=== PATIENT | female | born 1985 | race American Indian/Alaskan Native ===

== ENCOUNTER 2016-09-10 01:12 | Emergency (ER) | payer MEDICAID, OTHER ==
[2016-09-10 01:28] VITALS: BP 110/82
[2016-09-10] MEDS ORDERED: Amoxicillin 500 MG Cap PO ONE (01:43)
[2016-09-10] MEDS ORDERED: Benzocaine 20% Oral Spray 59.2 ML Canister MUCMEM ONE (01:43)
--- NOTE | 2016-09-10 01:43 | EDM.PDOC ---
ED HPI ENT - General Chief Complaint: ENT Problem Stated Complaint: TOOTHACHE, NO PHONE Time Seen by Provider: 09/10/16 01:36 Source of Information: Reports: Patient History Limitations: Reports: No limitations - History of Present Illness INITIAL COMMENTS - FREE TEXT/NARRATIVE: 31 yo [place] Female c/o right maxillary toothache X 6 hours. Pt. w/ known advanced caries Symptom Onset Date: 09/09/16 Symptom Onset Time: 12:00 Timing/Duration: Reports: Hour(s): Severity: moderate Location: Reports: mouth (maxillary tooth) Quality: Reports: Ache Worsens with: Reports: Cold therapy Associated Symptoms: Reports: no other symptoms - Related Data Allergies/ADRs: Allergies Allergy/AdvReac Type Severity Reaction Status Date / Time azithromycin [From Zithromax] Allergy Diarrhea Verified 09/10/16 01:30 Sulfa (Sulfonamide Allergy Other Verified 09/10/16 01:30 Antibiotics) trimethoprim Allergy Other Verified 09/10/16 01:30 Home Meds: Home Meds Ferrous Sulfate [Iron] 325 mg PO BIDM 02/25/14 [History] Vits #90/Iron Fum/FA [ Formula] 1 tab PO DAILY 02/25/14 [ History] Acetaminophen [Tylenol] 650 mg PO Q4H PRN #30 tablet 05/31/16 [Rx] Docusate Sodium [Colace] 100 mg PO BID PRN #60 cap 05/31/16 [Rx] Ferrous Sulfate 325 mg PO BID #60 tablet 05/31/16 [Rx] Ibuprofen [IJD: Ibuprofen] 600 mg PO Q6H PRN #30 tablet 05/31/16 [Rx] Past Medical History - Past Health History Medical/Surgical History: Denies Medical/Surgical History Genitourinary History: Reports: UTI, recurrent 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: , 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 Musculoskeletal History: Reports: Back pain, chronic, Other (see below) Other Musculoskeletal History: left breast cyst removed Psychiatric History: Reports: Addiction Hematologic History: Reports: Anemia - Past Surgical History Female Surgical History: Reports: Breast biopsy Social & Family History - Family History Family Medical History: Unobtainable - Tobacco Use Smoking Status *Q: Current Every Day Smoker Years of Tobacco use: 10 Packs/Tins Daily: 5 - Caffeine Use Caffeine Use: Reports: Coffee, Soda, Tea - Alcohol Use Days Per Week of Alcohol Use: 0 - Recreational Drug Use Recreational Drug Use: No Recreational Drug Use Frequency: Patient Refuses To Answer ED ROS ENT - Review of Systems Review Of Systems: See Below Constitutional: Reports: no symptoms HEENT: Reports: Dental pain Respiratory: Reports: No Symptoms Cardiovascular: Reports: No symptoms Endocrine: Reports: no symptoms GI/Abdominal: Reports: No symptoms : Reports: no symptoms Musculoskeletal: Reports: no symptoms Skin: Reports: no symptoms Neurological: Reports: No Symptoms Psychiatric: Reports: No symptoms Hematologic/Lymphatic: Reports: no symptoms Immunologic: Reports: no symptoms ED EXAM, ENT - Physical Exam Exam: See Below Exam Limited By: No limitations General Appearance: alert, WD/WN, no apparent distress Eye Exam: bilateral eye: PERRL Ears: normal external exam Nose: normal inspection Mouth/Throat: Normal inspection, Dental pain (right posterior maxillary tooth w / fracture and advanced ovidio) Head: atraumatic Neck: normal inspection Respiratory/Chest: no respiratory distress Cardiovascular: normal peripheral pulses GI/Abdominal: normal bowel sounds Back: normal inspection Extremities: normal inspection Neurological: alert, oriented, CN II-XII intact Psychiatric: normal affect Skin: Warm, Dry, Intact, No rash Lymphatic: no adenopathy Course - Vital Signs Last Recorded V/S: Last Vital Signs Temp 36.6 C 09/10/16 01:21 Pulse 74 09/10/16 01:21 Resp 17 09/10/16 01:21 BP 110/82 09/10/16 01:21 Pulse Ox 100 09/10/16 01:21 - Orders/Labs/Meds Orders: Active Orders 24 hr Category Date Time Status Lidocaine 2% [Xylocaine 2% Viscous] Med 09/10/16 01:46 Once 20 ml PO ONETIME ONE Meds: Medications Discontinued Medications Generic Name Dose Route Start Last Admin Trade Name Freq PRN Reason Stop Dose Admin Amoxicillin 500 mg 09/10/16 01:43 Amoxil PO 09/10/16 01:44 ONETIME ONE Benzocaine 5 ml 09/10/16 01:43 Hurricaine 20% Bryce MUCMEM 09/10/16 01:44 ONETIME ONE Departure - Departure Time of Disposition: 01:52 Disposition: Home, Self-Care 01 Condition: good Clinical Impression: Dental caries Fracture of tooth Qualifiers: Encounter type: initial encounter Fracture type: open Qualified Code(s): S02.5XXB - Fracture of tooth (traumatic), initial encounter for open fracture Forms: ED Department Discharge Additional Instructions: Rest Take Penicillin 500mg QID # 40 as prescribed and complete Use Toothballs as directed and given to you. F/U w/ Dentist - My Orders Last 24 Hours: My Active Orders 09/10/16 01:46 Lidocaine 2% [Xylocaine 2% Viscous] 20 ml PO ONETIME ONE - Assessment/Plan Last 24 Hours: My Active Orders 09/10/16 01:46 Lidocaine 2% [Xylocaine 2% Viscous] 20 ml PO ONETIME ONE
[2016-09-10] MEDS ORDERED: Lidocaine 2% Viscous Solution 100 ML Bottle PO ONE (01:46)
[2016-09-10] MEDS ORDERED: Lidocaine 2% Viscous Solution 15 ML Cup ONE (01:49)
[2016-09-10] MEDS ORDERED: Lidocaine 2% Viscous Solution 15 ML Cup PO ONE (01:52)
== END 2016-09-10 02:03 | disposition home or self-care (01) ==
LOC: DL.ED 01:12
DX: S02.5XXB Fracture of tooth (traumatic), initial encounter for open fracture (principal); K02.9 Dental caries, unspecified; D64.9 Anemia, unspecified; Z87.440 Personal history of urinary (tract) infections; F17.210 Nicotine dependence, cigarettes, uncomplicated; Z79.899 Other long term (current) drug therapy; Z88.1 Allergy status to other antibiotic agents; Z88.2 Allergy status to sulfonamides; X58.XXXA Exposure to other specified factors, initial encounter
CPT/HCPCS: 99282; A9270

== ENCOUNTER 2017-06-16 07:29 | Inpatient (IN) | payer MEDICAID ==
[2017-06-16] MEDS ORDERED: Lactated Ringers 1,000 ML IV SCH (07:30)
[2017-06-16] MEDS ORDERED: Oxytocin/Normal Saline 30 UNIT/500 ML BAG IV SCH (07:45)
[2017-06-16] MEDS ORDERED: Sodium Chloride 0.9% 10 ML Syringe FLUSH PRN (08:12)
[2017-06-16] MEDS ORDERED: Oxytocin 10 Units/1 ML SDV IM PRN (08:12)
[2017-06-16] MEDS ORDERED: Benzocaine/Menthol 20%-0.5% Spray 56 GM Canister TOP PRN (08:12)
[2017-06-16] MEDS ORDERED: Simethicone 80 MG Tab.Chew PO PRN (08:12)
[2017-06-16] MEDS ORDERED: Carboprost Tromethamine 250 MCG/1 ML Amp IM PRN (08:12)
[2017-06-16] MEDS ORDERED: Misoprostol 400 MCG (4 X 100 MCG TAB) RECTAL PRN (08:12)
[2017-06-16] MEDS ORDERED: Methylergonovine 0.2 MG Tab PO PRN (08:12)
[2017-06-16] MEDS: Prenatal Multivitamin with Calcium/Folic Acid/Iron Tab PO SCH (09:10)
[2017-06-16] MEDS: Ibuprofen 800 MG Tab PO PRN ×2 (09:10→19:58)
[2017-06-16] MEDS: Acetaminophen 325 MG Tab PO PRN (13:25)
[2017-06-16] MEDS: Docusate Sodium 100 MG Cap PO PRN (19:58)
[2017-06-17] MEDS: Acetaminophen 325 MG Tab PO PRN ×2 (02:12→10:26)
[2017-06-17] MEDS: Ibuprofen 800 MG Tab PO PRN ×2 (06:30→18:53)
[2017-06-17] MEDS: Prenatal Multivitamin with Calcium/Folic Acid/Iron Tab PO SCH (10:25)
[2017-06-17] MEDS: Docusate Sodium 100 MG Cap PO PRN (10:26)
--- NOTE | 2017-06-17 11:54 | PCM.LDHP ---
L&D History of Present Illness - General Date of Service: 06/16/17 Admit Problem/Dx: Patient Status Order with Admit Dx/Problem 06/16/17 08:13 Patient Status [ADT] Routine Admission Diagnosis/Problem Admission Diagnosis/Problem Source of Information: Patient History Limitations: Reports: No Limitations - History of Present Illness Introduction:: 32-year-old patient at unknown gestational age presented in active labor with precipitous delivery approximately 10 minutes after arriving to the floor. Patient is a -0-1-7 who believes her LMP may have been in October 2016. She has had no care with this . She states she started mynor around 0100 this morning. She was unable to give any more details about her contraction frequency. Her water broke on the way to the hospital. Her significant other states the fluid appeared clear. Patient has a history of drug use but denies any current use with this . OBSTETRICAL HISTORY: 1. On 08/25/2004, 40 week gestation, vaginal delivery 7 pound male 2. On 06/28/2007, 39 week gestation, vaginal delivery, 7 pound 6 ounce male 3. On 12/21/2010, 40 week gestation, vaginal delivery, 7 pound 12 ounce female 4. On 11/27/2011, 39 week 2 day gestation, vaginal delivery, 7 pound 10.1 ounce male 5. On 02/24/2014, 39 week 1 day gestation, vaginal delivery, 7 pound male 6. On 05/25/2015, 37 week gestation (estimated), vaginal delivery, 6 pound 5.8 ounce male 7. On 05/30/16, 39 week gestation, vaginal delivery, 7 pound 11 ounce male Pain Score: 7 - Related Data Allergies/Adverse Reactions: Allergies Allergy/AdvReac Type Severity Reaction Status Date / Time azithromycin [From Zithromax] Allergy Diarrhea Verified 09/10/16 01:30 Sulfa (Sulfonamide Allergy Other Verified 09/10/16 01:30 Antibiotics) trimethoprim Allergy Other Verified 09/10/16 01:30 Home Medications: Home Meds Vit 90/Iron Fum/Folic [ Formula] 1 tab PO DAILY 02/25/14 [ History] Ferrous Sulfate 325 mg PO BID #60 tablet 05/31/16 [Rx] Ibuprofen [IJD: Ibuprofen] 600 mg PO Q6H PRN #30 tablet 05/31/16 [Rx] Acetaminophen [Tylenol] 650 mg PO Q6H PRN tablet 06/17/17 [Rx] Docusate Sodium [Colace] 100 mg PO BID PRN cap 06/17/17 [Rx] Ibuprofen [IJD: Ibuprofen] 800 mg PO Q8H PRN tablet 06/17/17 [Rx] Past Medical History - Past Health History Medical/Surgical History: Denies Medical/Surgical History Genitourinary History: Reports: UTI, Recurrent 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: , 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 Musculoskeletal History: Reports: Back Pain, Chronic, Other (See Below) Other Musculoskeletal History: left breast cyst removed Psychiatric History: Reports: Addiction (History oxycodone, tramadol and THC), Anxiety, Depression Hematologic History: Reports: Anemia - Infectious Disease History Infectious Disease History: Reports: Other (See Below) (Chickenpox) - Past Surgical History Female Surgical History: Reports: Breast Biopsy Social & Family History - Family History Cardiac: Reports: CAD (Maternal uncle) Endocrine/Metabolic: Reports: Diabetes, type II (Maternal grandmother) Other Family History: Negative for defects, multiples, anesthesia issues and bleeding/ clotting disorders. - Tobacco Use Smoking Status *Q: Current Every Day Smoker Years of Tobacco use: 16 Packs/Tins Daily: 0.2 - Caffeine Use Caffeine Use: Reports: Soda - Alcohol Use Days Per Week of Alcohol Use: 0 - Recreational Drug Use Recreational Drug Use: Yes Drug Use in Last 12 Months: No Recreational Drug Type: Reports: Other (see below) Other Recreational Drug Type: Pt denies. Drug urine screen positive for Meth and amphetamines Recreational Drug Use Frequency: Patient Refuses To Answer - Living Situation & Occupation Social History Comment: Lives with significant other in [place]. Would not comment on how many children are currently living with them. H&P Review of Systems - Review of Systems: Review Of Systems: See Below General: Reports: No Symptoms HEENT: Reports: No Symptoms Pulmonary: Reports: No Symptoms Cardiovascular: Reports: No Symptoms Gastrointestinal: Reports: Abdominal Pain (cramping) Genitourinary: Reports: No Symptoms Musculoskeletal: Reports: Back Pain Skin: Reports: No Symptoms Psychiatric: Reports: No Symptoms Neurological: Reports: No Symptoms Hematologic/Lymphatic: Reports: No Symptoms L&D Exam - Exam Exam: See Below - Vital Signs Vital Signs: Last Vital Signs Temp 36.5 C 06/16/17 21:49 Pulse 74 06/16/17 21:49 Resp 16 06/16/17 21:49 BP 112/67 06/16/17 21:49 Pulse Ox 98 06/16/17 21:49 Weight: 58.967 kg - Exam General: Alert, Oriented HEENT: Mucosa Moist & [place] Lungs: Clear to Auscultation, Normal Respiratory Effort Cardiovascular: Regular Rate, Regular Rhythm. No: Systolic Murmur, Diastolic Murmur Genitourinary: Normal external exam Back Exam: Normal Inspection Extremities: No Pedal Edema Skin: Warm, Dry, Intact - Patient Data Lab Results Last 24 hrs: Laboratory Results - last 24 hr 06/16/17 Range/Units 07:35 Rubella Immune Status Immune Rubella IgG Antibody Positive Result Diagrams: 06/16/17 07:35 - Problem List (1) Grand multipara SNOMED Code(s): 29672454 ICD Code: Z64.1 - PROBLEMS RELATED TO MULTIPARITY Status: Acute Current Visit: Yes (2) Insufficient care SNOMED Code(s): 2392342571452 ICD Code: O09.30 - SUPRVSN OF PREG W INSUFFICIENT ANTENAT CARE, UNSP TRIMESTER Status: Acute Current Visit: No (3) Normal vaginal delivery SNOMED Code(s): 44890992 ICD Code: O80 - ENCOUNTER FOR FULL-TERM UNCOMPLICATED DELIVERY Status: Acute Current Visit: No Problem List Initiated/Reviewed/Updated: Yes Orders Last 24hrs: Active Orders 24 hr Category Date Time Status Ready for Discharge [RC] PER UNIT ROUTINE Care 06/17/17 11:54 Ordered Medication Orders Acetaminophen (Tylenol) 650 mg PO Q6H PRN PRN Reason: mild pain or fever Last Admin: 06/17/17 10:26 Dose: 650 mg Admin: 06/17/17 02:12 Dose: 650 mg Admin: 06/16/17 13:25 Dose: 650 mg Benzocaine/Menthol (Dermoplast Pain Relief [place]) 0 gm TOP Q4H PRN PRN Reason: Perineal comfort measures Last Admin: 06/16/17 10:32 Dose: 1 spray Carboprost Tromethamine (Hemabate Ds) 250 mcg IM ASDIRECTED PRN PRN Reason: Excessive vaginal bleeding Docusate Sodium (Colace) 100 mg PO BID PRN PRN Reason: Constipation Last Admin: 06/17/17 10:26 Dose: 100 mg Admin: 06/16/17 19:58 Dose: 100 mg Oxytocin/Sodium Chloride (Pitocin In Ns 30 Unit/500 Ml) 30 unit in 500 mls @ 2 mls/hr IV TITRATE NAYLA; 2 MUNITS/MIN PRN Reason: Protocol Last Titration: 06/16/17 11:00 Dose: 0 mls/hr Titration: 06/16/17 09:56 Dose: 50 munits/min, 50 mls/hr Titration: 06/16/17 08:46 Dose: 125 mls/hr Titration: 06/16/17 08:01 Dose: 250 munits/min, 250 mls/hr Admin: 06/16/17 07:46 Dose: 500 munits/min, 500 mls/hr Lactated Ringer's (Ringers, Lactated) 1,000 mls @ 125 mls/hr IV ASDIRECTED NAYLA Last Infusion: 06/16/17 11:00 Dose: 0 mls/hr Admin: 06/16/17 07:40 Dose: 125 mls/hr Ibuprofen (Motrin) 800 mg PO Q8H PRN PRN Reason: Mild Pain or Fever Last Admin: 06/17/17 06:30 Dose: 800 mg Admin: 06/16/17 19:58 Dose: 800 mg Admin: 06/16/17 09:10 Dose: 800 mg Methylergonovine Maleate (Methergine) 0.2 mg PO ONETIME PRN PRN Reason: excessive vaginal bleeding Misoprostol (Cytotec) 800 mcg RECTAL ONETIME PRN PRN Reason: Hemorrhage Oxytocin (Pitocin) 10 unit IM ONETIME PRN PRN Reason: Bleeding Last Admin: 06/16/17 07:42 Dose: 10 unit Prenat Multivit/Te[employer] Equipment Maintainer/Iron/Folic Ac ( Plus Iron) 1 each PO DAILY NAYLA Last Admin: 06/17/17 10:25 Dose: 1 each Admin: 06/16/17 09:10 Dose: 1 each Simethicone (Simethicone) 80 mg PO Q4H PRN PRN Reason: Gas Sodium Chloride (Saline Flush) 10 ml FLUSH ASDIRECTED PRN PRN Reason: Keep Vein Open Assessment/Plan Comment:: 32-year-old status post precipitous at unknown gestational age (baby appears term) 1. Initiate routine cares 2. Obtain IOB labs and UDS with tramadol 3. Anticipate discharge 06/18/17 Anabelle Rubalcava MD
--- NOTE | 2017-06-17 11:55 | PCM.DCSUM1 ---
Discharge Summary - Hospital Course Free Text/Narrative:: 32-year-old status post precipitous at unknown gestation age --No care - Discharge Data Discharge Date: 06/17/17 Discharge Disposition: Home, Self-Care 01 Condition: Good - Patient Summary/Data Operative Procedure(s) Performed: None Complications: None Consults: Consultations 06/16/17 08:12 Consult to Ordnance Keeper [CONS] Routine Labs Pending at D/C: Urine tramadol, routine IOB labs pending Recommended Follow-up Testing/Procedures: None Planned Operative Procedure(s) after DC: None Hospital Course: Patient is eating and drinking well. No fever or chills. No dizziness with ambulation. Urinating and passing gas. UDS was positive for methamphetamines. Baby has to stay until 06/20/17 per social work. Patient would like to be discharged today. - Patient Instructions Diet: Usual Diet as Tolerated Activity: As Tolerated Driving: May Drive Today Showering/Bathing: May Shower Notify Provider of: Fever, Increased Pain - Discharge Plan Home Medications: Home Meds Vit 90/Iron Fum/Folic [ Formula] 1 tab PO DAILY 02/25/14 [ History] Ferrous Sulfate 325 mg PO BID #60 tablet 05/31/16 [Rx] Ibuprofen [IJD: Ibuprofen] 600 mg PO Q6H PRN #30 tablet 05/31/16 [Rx] Acetaminophen [Tylenol] 650 mg PO Q6H PRN tablet 06/17/17 [Rx] Docusate Sodium [Colace] 100 mg PO BID PRN cap 06/17/17 [Rx] Ibuprofen [IJD: Ibuprofen] 800 mg PO Q8H PRN tablet 06/17/17 [Rx] Patient Handouts: Stimulant Use Disorder-Amphetamines, Home Care Instructions for Mom, Care After Vaginal Delivery, Stimulant Use Disorder- Methamphetamines, Infants of Substance-Abusing Mothers Referrals: Anabelle Rubalcava MD [Physician] - - Discharge Summary/Plan Comment DC Time >30 min.: No Discharge Summary/Plan Comment: Discharge today with follow-up in 6-8 weeks for routine care. Reasons to return for evaluation or present to the ED were reviewed, and all questions were answered. - General Info Subjective Update: Patient is eating and drinking well. No fever or chills. No dizziness with ambulation. Urinating and passing gas. UDS was positive for methamphetamines. Baby has to stay until 06/20/17 per social work. Patient would like to be discharged today. Functional Status: Reports: Pain Controlled, Tolerating Diet, Ambulating, Urinating - Review of Systems General: Reports: No Symptoms HEENT: Reports: No Symptoms Pulmonary: Reports: No Symptoms Cardiovascular: Reports: No Symptoms Gastrointestinal: Reports: No Symptoms Genitourinary: Reports: No Symptoms Musculoskeletal: Reports: Back Pain (chronic) - Patient Data Vitals - Most Recent: Last Vital Signs Temp 36.5 C 06/16/17 21:49 Pulse 74 06/16/17 21:49 Resp 16 06/16/17 21:49 BP 112/67 06/16/17 21:49 Pulse Ox 98 06/16/17 21:49 Weight - Most Recent: 58.967 kg Lab Results - Last 24 hrs: Laboratory Results - last 24 hr 06/16/17 Range/Units 07:35 Rubella Immune Status Immune Rubella IgG Antibody Positive Med Orders - Current: Current Medications Acetaminophen (Tylenol) 650 mg PO Q6H PRN PRN Reason: mild pain or fever Last Admin: 06/17/17 10:26 Dose: 650 mg Benzocaine/Menthol (Dermoplast Pain Relief [place]) 0 gm TOP Q4H PRN PRN Reason: Perineal comfort measures Last Admin: 06/16/17 10:32 Dose: 1 spray Carboprost Tromethamine (Hemabate Ds) 250 mcg IM ASDIRECTED PRN PRN Reason: Excessive vaginal bleeding Docusate Sodium (Colace) 100 mg PO BID PRN PRN Reason: Constipation Last Admin: 06/17/17 10:26 Dose: 100 mg Oxytocin/Sodium Chloride (Pitocin In Ns 30 Unit/500 Ml) 30 unit in 500 mls @ 2 mls/hr IV TITRATE NAYLA; 2 MUNITS/MIN PRN Reason: Protocol Last Titration: 06/16/17 11:00 Dose: Infused Lactated Ringer's (Ringers, Lactated) 1,000 mls @ 125 mls/hr IV ASDIRECTED NAYLA Last Infusion: 06/16/17 11:00 Dose: 0 mls/hr Ibuprofen (Motrin) 800 mg PO Q8H PRN PRN Reason: Mild Pain or Fever Last Admin: 06/17/17 06:30 Dose: 800 mg Methylergonovine Maleate (Methergine) 0.2 mg PO ONETIME PRN PRN Reason: excessive vaginal bleeding Misoprostol (Cytotec) 800 mcg RECTAL ONETIME PRN PRN Reason: Hemorrhage Oxytocin (Pitocin) 10 unit IM ONETIME PRN PRN Reason: Bleeding Last Admin: 06/16/17 07:42 Dose: 10 unit Prenat Multivit/[place]/Iron/Folic Ac ( Plus Iron) 1 each PO DAILY NAYLA Last Admin: 06/17/17 10:25 Dose: 1 each Simethicone (Simethicone) 80 mg PO Q4H PRN PRN Reason: Gas Sodium Chloride (Saline Flush) 10 ml FLUSH ASDIRECTED PRN PRN Reason: Keep Vein Open - Exam General: Reports: Alert, Moderate Distress HEENT: Reports: Mucous Membr. Moist/[place] Lungs: Reports: Clear to Auscultation, Normal Respiratory Effort Cardiovascular: Reports: Regular Rate, Regular Rhythm, No Murmurs Extremities: No Pedal Edema Skin: Reports: Warm, Dry, Intact *Q Meaningful Use (DIS) - VTE *Q VTE Criteria *Q: - Stroke *Q Stroke Criteria *Q: - AMI *Q AMI Criteria *Q:
--- NOTE | 2017-06-17 12:50 | PCM.DEL ---
<Chasidy Barnett - Last Filed: 06/17/17 13:06> L & D Note - General Info Date of Service: 06/15/17 Mother's Due Date: 06/15/17 (Unknown, no care, LMN unknown ) - Delivery Note Labor: Spontaneous Delivery Outcome: Livebirth Infant Delivery Method: Spontaneous Vaginal Delivery-Single Infant Delivery Mode: Spontaneous Presentation: Unable to Assess (Precipitous delivery, Infant delivered by nurse.) Anesthesia Type: None Amniotic Fluid Description: Clear (Per RN, patient presented leaking clear amniotic fluid) Episiotomy Type: None Laceration: 1st Degree, Periurethral (Right and Left Periurethral tear) Placenta: Intact, Spontaneous Cord: 3 Vessels Resuscitation Needed: No Score 1 min: 9 Score 5 min: 9 Post Delivery Events: Other (see below) (Fundal Massage, 10 units pitocin IM ) Second Stage Interventions: Reports: Pushing Effectively, Other (see below) Delivery Comments (Free Text/Narrative):: Per RN, Patient presented to [facility] OB department in clear distress. Patient known by nurses to be grand multigravida, exact status unknown at admission. Gestational age unknown at admission, possible last menstrual period in September-October 2016. Patient received "a shot in October for control". She has had not care with this . Patient woke up with contractions at 0100 on 06/16/17. The contractions worsened around 0500. She was admitted to the OB department with contractions and leaking clear fluid. Tocometer tracing was started at 0723. Patient pushed and a mucus plug was delivered. On the next push, the patient delivered a live male infant. Time of delivery 0736. The baby was delivered by Sudeep Szymanski RN. Chasidy Barnett [facility] and Kathya Mcclain MSIII delivered the placenta and provided fundal massage. Baby was placed on mother's chest and cord was immediately clamped. The father of the baby cut the umbilical cord. Cord blood and meconium were collected. APGARs were 9/9 at one and five minutes. 10 units pitosin IM was given during fundal massage to improve uterine tone. Placenta was delivered with trailing membranes. Post-delivery Perineal and vaginal exam showed a right and left 1st degree periurethral tears that did not require suture repair. - Patient Data Vitals - Most Recent: Last Vital Signs Temp 97.7 F 06/16/17 21:49 Pulse 74 06/16/17 21:49 Resp 16 06/16/17 21:49 BP 112/67 06/16/17 21:49 Pulse Ox 98 06/16/17 21:49 Weight - Most Recent: 58.967 kg Lab Results Last 24 Hours: Laboratory Results - last 24 hr 06/16/17 Range/Units 07:35 Rubella Immune Status Immune Rubella IgG Antibody Positive Med Orders - Current: Current Medications Acetaminophen (Tylenol) 650 mg PO Q6H PRN PRN Reason: mild pain or fever Last Admin: 06/17/17 10:26 Dose: 650 mg Benzocaine/Menthol (Dermoplast Pain Relief [place]) 0 gm TOP Q4H PRN PRN Reason: Perineal comfort measures Last Admin: 06/16/17 10:32 Dose: 1 spray Carboprost Tromethamine (Hemabate Ds) 250 mcg IM ASDIRECTED PRN PRN Reason: Excessive vaginal bleeding Docusate Sodium (Colace) 100 mg PO BID PRN PRN Reason: Constipation Last Admin: 06/17/17 10:26 Dose: 100 mg Oxytocin/Sodium Chloride (Pitocin In Ns 30 Unit/500 Ml) 30 unit in 500 mls @ 2 mls/hr IV TITRATE NAYLA; 2 MUNITS/MIN PRN Reason: Protocol Last Titration: 06/16/17 11:00 Dose: Infused Lactated Ringer's (Ringers, Lactated) 1,000 mls @ 125 mls/hr IV ASDIRECTED NAYLA Last Infusion: 06/16/17 11:00 Dose: 0 mls/hr Ibuprofen (Motrin) 800 mg PO Q8H PRN PRN Reason: Mild Pain or Fever Last Admin: 06/17/17 06:30 Dose: 800 mg Methylergonovine Maleate (Methergine) 0.2 mg PO ONETIME PRN PRN Reason: excessive vaginal bleeding Misoprostol (Cytotec) 800 mcg RECTAL ONETIME PRN PRN Reason: Hemorrhage Oxytocin (Pitocin) 10 unit IM ONETIME PRN PRN Reason: Bleeding Last Admin: 06/16/17 07:42 Dose: 10 unit Prenat Multivit/Aircraft Engineer/Iron/Folic Ac ( Plus Iron) 1 each PO DAILY NAYLA Last Admin: 06/17/17 10:25 Dose: 1 each Simethicone (Simethicone) 80 mg PO Q4H PRN PRN Reason: Gas Sodium Chloride (Saline Flush) 10 ml FLUSH ASDIRECTED PRN PRN Reason: Keep Vein Open - Problem List & Annotations (1) Normal vaginal delivery SNOMED Code(s): 36488203 Code(s): O80 - ENCOUNTER FOR FULL-TERM UNCOMPLICATED DELIVERY Status: Acute Current Visit: No - Problem List Review Problem List Initiated/Reviewed/Updated: Yes <Anabelle Rubalcava - Last Filed: 06/18/17 10:01> L & D Note - Delivery Note Presentation: Vertex Post Delivery Events: Other (see below) Second Stage Interventions: Reports: Pushing Effectively Delivery Comments (Free Text/Narrative):: I arrived to L&D after delivery of the infant. Upon arrival to the room, baby was in the warmer and patient was lying in the bed. Placenta was delivered. Assessment of patient revealed a firm uterus, intact perineum and appropriate amount of bleeding. Baby was also evaluated. Patient has had no care with this . She believes her LMP to be in October 2016. She does have a history of substance abuse but denies drug use with this . A full H&P will be completed as well. Anabelle Rubalcava MD - Patient Data Vitals - Most Recent: Last Vital Signs Temp 37.2 C 06/17/17 08:00 Pulse 68 06/17/17 08:00 Resp 16 06/17/17 08:00 BP 122/73 06/17/17 08:00 Pulse Ox 98 06/17/17 08:00 Med Orders - Current: Current Medications Acetaminophen (Tylenol) 650 mg PO Q6H PRN PRN Reason: mild pain or fever Last Admin: 06/17/17 10:26 Dose: 650 mg Benzocaine/Menthol (Dermoplast Pain Relief [place]) 0 gm TOP Q4H PRN PRN Reason: Perineal comfort measures Last Admin: 06/16/17 10:32 Dose: 1 spray Carboprost Tromethamine (Hemabate Ds) 250 mcg IM ASDIRECTED PRN PRN Reason: Excessive vaginal bleeding Docusate Sodium (Colace) 100 mg PO BID PRN PRN Reason: Constipation Last Admin: 06/17/17 10:26 Dose: 100 mg Oxytocin/Sodium Chloride (Pitocin In Ns 30 Unit/500 Ml) 30 unit in 500 mls @ 2 mls/hr IV TITRATE NAYLA; 2 MUNITS/MIN PRN Reason: Protocol Last Titration: 06/16/17 11:00 Dose: Infused Lactated Ringer's (Ringers, Lactated) 1,000 mls @ 125 mls/hr IV ASDIRECTED NAYLA Last Infusion: 06/16/17 11:00 Dose: 0 mls/hr Ibuprofen (Motrin) 800 mg PO Q8H PRN PRN Reason: Mild Pain or Fever Last Admin: 06/17/17 18:53 Dose: 800 mg Methylergonovine Maleate (Methergine) 0.2 mg PO ONETIME PRN PRN Reason: excessive vaginal bleeding Misoprostol (Cytotec) 800 mcg RECTAL ONETIME PRN PRN Reason: Hemorrhage Oxytocin (Pitocin) 10 unit IM ONETIME PRN PRN Reason: Bleeding Last Admin: 06/16/17 07:42 Dose: 10 unit Prenat Multivit/Rattan/Iron/Folic Ac ( Plus Iron) 1 each PO DAILY NAYLA Last Admin: 06/17/17 10:25 Dose: 1 each Simethicone (Simethicone) 80 mg PO Q4H PRN PRN Reason: Gas Sodium Chloride (Saline Flush) 10 ml FLUSH ASDIRECTED PRN PRN Reason: Keep Vein Open Discontinued Medications Diphtheria/Tetanus/Acell Pertussis (Adacel) 0.5 ml IM .ONCE ONE Stop: 06/17/17 18:26 Last Admin: 06/17/17 18:51 Dose: 0.5 ml Influenza Virus Vaccine (Flucelvax Quad [id number]) 60 mcg IM .ONCE ONE Stop: 06/17/17 18:26 Last Admin: 06/17/17 18:52 Dose: 60 mcg - Problem List & Annotations (1) Grand multipara SNOMED Code(s): 61990915 Code(s): Z64.1 - PROBLEMS RELATED TO MULTIPARITY Status: Acute Current Visit: Yes (2) Insufficient care SNOMED Code(s): 4068898508106 Code(s): O09.30 - SUPRVSN OF PREG W INSUFFICIENT ANTENAT CARE, UNSP TRIMESTER Status: Acute Current Visit: No (3) Normal vaginal delivery SNOMED Code(s): 48998345 Code(s): O80 - ENCOUNTER FOR FULL-TERM UNCOMPLICATED DELIVERY Status: Acute Current Visit: No - Problem List Review Problem List Initiated/Reviewed/Updated: Yes - My Orders Last 24 Hours: My Active Orders 06/17/17 11:54 Ready for Discharge [RC] PER UNIT ROUTINE - Assessment Assessment:: 32-year-old grand multip at unknown gestational age status post precipitous - Plan Plan:: 1. Initiate routine cares 2. Will obtain UDS and urine tramadol 3. Anticipate discharge 06/18/17 Anabelle Rubalcava MD
[2017-06-17] MEDS ORDERED: Diphtheria,Pertussis(Acell),Tetanus Vaccine 0.5 ML SDV IM ONE (18:25)
[2017-06-17] MEDS ORDERED: FLU VAC QS 17-18(4YR UP)CEL/PF 60 MCG/0.5 ML Syringe IM ONE (18:25)
[2017-06-17 21:00] VITALS: BP 131/84
[2017-06-18] MEDS ORDERED: Sodium Chloride 0.9% 10 ML Syringe FLUSH SCH (06:00)
== END 2017-06-17 19:20 | disposition home or self-care (01) | DRG 775 ==
LOC: DL.OBCHECK 07:29 → EEVIPCON 07:36 → OBSVTOIN 07:36 → DL.OB 07:36
PROVIDERS: ADMIT Family Medicine; ATTEND Family Medicine
PROC: 10E0XZZ Delivery of Products of Conception, External Approach (ICD-10-PCS; principal; 2017-06-16)
PROC: 3E0234Z Introduction of Serum, Toxoid and Vaccine into Muscle, Percutaneous Approach (ICD-10-PCS; 2017-06-16)
DX: O62.3 Precipitate labor (principal); O99.324 Drug use complicating childbirth; O70.0 First degree perineal laceration during delivery; F15.10 Other stimulant abuse, uncomplicated; Z3A.00 Weeks of gestation of pregnancy not specified; Z37.0 Single live birth; Z23 Encounter for immunization
CPT/HCPCS: 36415; 59409; 80305; 85027; 86592; 86703; 86762; 86803; 86850; 86900; 86901; 87340; 90471; 90674; 90715; A9270-GY; J2590; J7120

== ENCOUNTER 2018-07-07 18:05 | Emergency (ER) | payer MEDICAID ==
[2018-07-07] MEDS ORDERED: Bacitracin Oint 1 GM U/D Packet TOP ONE (18:11)
[2018-07-07] MEDS ORDERED: Lidocaine 1% with EPINEPHrine 1:100,000 20 ML MDV INJECT ONE (18:11)
[2018-07-07 18:34] VITALS: BP 106/65
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
== END 2018-07-07 18:48 ==
LOC: DL.ED 18:05
DX: S01.112A Laceration without foreign body of left eyelid and periocular area, initial encounter (principal); Z88.1 Allergy status to other antibiotic agents; Z88.2 Allergy status to sulfonamides; Z88.8 Allergy status to other drugs, medicaments and biological substances; F15.10 Other stimulant abuse, uncomplicated; Y04.8XXA Assault by other bodily force, initial encounter
CPT/HCPCS: 12011; 99283

== ENCOUNTER 2020-08-31 16:05 | Inpatient (IN) | payer MEDICAID, SELFPAY ==
[2020-08-31] MEDS ORDERED: MVI, Adult with Vitamin K 10 ML, Folic Acid 1 MG, Thiamine 100 MG in Lactated Ringers 1... IV ONE ×4 (16:46)
[2020-08-31 17:16] LABS: ANION GAP 18.1 mEq/L (7-13); CHLORIDE,CL 99 mmol/L (98-107); SODIUM,NA 141 mmol/L (136-145)
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
[2020-08-31] MEDS ORDERED: Ondansetron 4 MG/2 ML SDV IVPUSH PRN (19:28)
[2020-08-31] MEDS ORDERED: Acetaminophen 325 MG Tab PO PRN (19:28)
[2020-08-31] MEDS ORDERED: LORazepam 2 MG/ML SDV IV PRN (19:32)
[2020-08-31 19:36] LABS: CORONAVIRUS COVID-19 NAA NEGATIVE (NEGATIVE)
[2020-08-31] MEDS ORDERED: cefTRIAXone 1 GM in Sodium Chloride 0.9% 50 ML IV ONE (19:48)
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
[2020-08-31] MEDS: Sodium Chloride 0.9% 1,000 ML IV SCH (20:08)
[2020-08-31] MEDS: Pantoprazole 40 MG Vial IVPUSH SCH (20:57)
[2020-08-31] MEDS: Heparin Sodium 5,000 Units/ML Vial SUBCUT SCH (20:58)
[2020-08-31] MEDS: cloNIDine 0.1 MG Tab PO SCH (20:58)
[2020-08-31] MEDS: ClonazePAM 0.5 MG Tab PO SCH (20:58)
[2020-08-31] MEDS: Doxycycline Monohydrate 100 MG Cap PO SCH (20:58)
[2020-08-31] MEDS: Thiamine 100 MG Tab PO SCH (20:58)
[2020-09-01] MEDS: Sodium Chloride 0.9% 1,000 ML IV SCH (03:56)
[2020-09-01 07:06] LABS: ANION GAP 16.5 mEq/L (7-13); CHLORIDE,CL 103 mmol/L (98-107); SODIUM,NA 140 mmol/L (136-145)
[2020-09-01] MEDS: ClonazePAM 0.5 MG Tab PO SCH ×2 (08:08→20:29)
[2020-09-01] MEDS: Multivitamins,Therapeutic Tab PO SCH (08:09)
[2020-09-01] MEDS: Doxycycline Monohydrate 100 MG Cap PO SCH ×2 (08:09→20:29)
[2020-09-01] MEDS: Pantoprazole 40 MG Vial IVPUSH SCH (08:09)
[2020-09-01] MEDS: cloNIDine 0.1 MG Tab PO SCH ×2 (08:09→20:26)
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
--- NOTE | 2020-09-01 14:12 | US ---
EXAMINATION: Abdomen Ltd SEX: Female AGE: 35 years CLINICAL HISTORY: 35-year-old female with known "alcohol abuse" and abnormally elevated liver function tests (LFTs). Interpretation: Abnormal. 1. Homogeneously dense slightly enlarged fatty liver. No discrete intrahepatic cystic or solid mass lesion. 2. Diseased gallbladder, i.e. discrete intraluminal echogenic "shadowing" gallstones. Mild gallbladder wall thickening. No pericystic fluid gallbladder. No abnormal dilatation of the intra or extrahepatic biliary ducts. 4. Normal anatomy and homogeneous density pancreas. No pancreatic mass, major duct dilatation or pseudocyst. 5. No ascites. CONCLUSION: Chronic cholecystitis/cholelithiasis. Fatty liver.
[2020-09-01] MEDS ORDERED: Sodium Chloride 0.9% 10 ML Syringe FLUSH PRN (18:31)
[2020-09-01] MEDS: Pantoprazole 40 MG Tab.CR PO SCH (20:25)
[2020-09-01] MEDS: Thiamine 100 MG Tab PO SCH (20:26)
[2020-09-01] MEDS: Heparin Sodium 5,000 Units/ML Vial SUBCUT SCH (20:34)
[2020-09-02 07:04] LABS: ANION GAP 16.1 mEq/L (7-13); CHLORIDE,CL 100 mmol/L (98-107); SODIUM,NA 139 mmol/L (136-145)
[2020-09-02] MEDS: ClonazePAM 0.5 MG Tab PO SCH ×2 (08:27→21:07)
[2020-09-02] MEDS: cloNIDine 0.1 MG Tab PO SCH ×2 (08:27→21:06)
[2020-09-02] MEDS: Doxycycline Monohydrate 100 MG Cap PO SCH ×2 (08:27→21:06)
[2020-09-02] MEDS: Multivitamins,Therapeutic Tab PO SCH (08:27)
[2020-09-02] MEDS: Heparin Sodium 5,000 Units/ML Vial SUBCUT SCH ×2 (08:27→21:07)
[2020-09-02] MEDS ORDERED: ClonazePAM 0.5 MG Tab PO SCH (12:00)
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
[2020-09-02] MEDS: LORazepam 1 MG Tab PO PRN (20:00)
[2020-09-02] MEDS: Thiamine 100 MG Tab PO SCH (21:06)
[2020-09-02] MEDS: Pantoprazole 40 MG Tab.CR PO SCH (21:07)
[2020-09-03] MEDS: LORazepam 1 MG Tab PO PRN (05:36)
[2020-09-03 07:04] LABS: ANION GAP 12.4 mEq/L (7-13); CHLORIDE,CL 102 mmol/L (98-107); SODIUM,NA 139 mmol/L (136-145)
[2020-09-03 08:21] VITALS: BP 121/88; PULSE 97
[2020-09-03] MEDS: Doxycycline Monohydrate 100 MG Cap PO SCH (08:31)
[2020-09-03] MEDS: ClonazePAM 0.5 MG Tab PO SCH (08:31)
[2020-09-03] MEDS: Multivitamins,Therapeutic Tab PO SCH (08:31)
[2020-09-03] MEDS: Heparin Sodium 5,000 Units/ML Vial SUBCUT SCH (08:32)
[2020-09-03] MEDS: cloNIDine 0.1 MG Tab PO SCH (08:32)
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
[2020-09-03] MEDS ORDERED: FLU Vacc QS2020-21 36MOS UP/PF 60 MCG/0.5 ML Syringe IM ONE (09:45)
--- NOTE | 2020-09-03 11:21 | PCM.SN.2 ---
- Free Text/Narrative Note: pt left without signing her DC paperwork Hep C result came positive after pt left. Nurses called her several times but unable to reach her
== END 2020-09-03 09:51 | disposition home or self-care (01) | DRG 392 ==
LOC: DL.ED 16:05 → DL.MS 18:32
PROVIDERS: ADMIT Internal Medicine; ATTEND Internal Medicine
DX: K29.20 Alcoholic gastritis without bleeding (principal); N39.0 Urinary tract infection, site not specified; K80.10 Calculus of gallbladder with chronic cholecystitis without obstruction; F10.188 Alcohol abuse with other alcohol-induced disorder; Y90.9 Presence of alcohol in blood, level not specified; R04.0 Epistaxis; F10.231 Alcohol dependence with withdrawal delirium; N76.0 Acute vaginitis; B96.89 Other specified bacterial agents as the cause of diseases classified elsewhere; M54.9 Dorsalgia, unspecified; G89.29 Other chronic pain; F41.9 Anxiety disorder, unspecified; F32.9 Major depressive disorder, single episode, unspecified; Z20.822 Contact with and (suspected) exposure to COVID-19; D64.9 Anemia, unspecified; Y90.8 Blood alcohol level of 240 mg/100 ml or more; R94.5 Abnormal results of liver function studies; Z88.1 Allergy status to other antibiotic agents; Z88.2 Allergy status to sulfonamides; Z88.8 Allergy status to other drugs, medicaments and biological substances; Z87.440 Personal history of urinary (tract) infections; Z91.410 Personal history of adult physical and sexual abuse; Z23 Encounter for immunization
CPT/HCPCS: 0240U; 36415; 76705; 80053; 80074; 80305; 80307; 81001; 81025; 82150; 83690; 83735; 85025; 87086; 87389; 96365; 99284; 99285; A9270-GY; C9113; J0696; J1644; J2060; J3411; J3490; J7030; J7120

== ENCOUNTER 2021-01-01 02:11 | Emergency (ER) | payer MEDICAID ==
[2021-01-01 02:32] VITALS: BP 140/99; PULSE 150
[2021-01-01] MEDS ORDERED: MVI, Adult with Vitamin K 10 ML, Folic Acid 1 MG, Thiamine 100 MG in Lactated Ringers 1... IV ONE ×4 (02:40)
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
[2021-01-01 03:06] LABS: AMPHETAMINES,URINE NEGATIVE (NEGATIVE); BARBITURATES,URINE NEGATIVE (NEGATIVE); BENZODIAZEPINE,URINE NEGATIVE (NEGATIVE); MDMA (ECSTASY), URINE POSITIVE (NEGATIVE); METHADONE,URINE NEGATIVE (NEGATIVE); METHAMPHETAMINES,URINE POSITIVE (NEGATIVE); OPIATES,URINE NEGATIVE (NEGATIVE); OXYCODONE,URINE NEGATIVE (NEGATIVE); PHENCYCLIDINE,URINE NEGATIVE (NEGATIVE); TCA,URINE NEGATIVE (NEGATIVE)
[2021-01-01 03:20] LABS: ANION GAP 18.3 mEq/L (7-13); CHLORIDE,CL 105 mmol/L (98-107); SODIUM,NA 145 mmol/L (136-145)
[2021-01-01 03:21] LABS: ACETAMINOPHEN 0 ug/mL (10-30 (Therapeutic))
== END 2021-01-01 04:56 | disposition home or self-care (01) ==
LOC: DL.ED 02:11
DX: F15.129 Other stimulant abuse with intoxication, unspecified (principal); F10.10 Alcohol abuse, uncomplicated; Y90.6 Blood alcohol level of 120-199 mg/100 ml; Z88.1 Allergy status to other antibiotic agents; Z88.2 Allergy status to sulfonamides
CPT/HCPCS: 36415; 80053; 80143; 80179; 80305; 80307; 81001; 81025; 84484; 85025; 87086; 93005; 93010; 96365; 99283; 99284; J3411; J7120; J3490

== ENCOUNTER 2021-01-01 09:33 | Emergency (ER) | payer MEDICAID ==
[2021-01-01] MEDS ORDERED: LORazepam 2 MG/ML SDV IVPUSH ONE ×2 (10:41→14:41)
[2021-01-01 11:03] LABS: CHLORIDE,CL 101 mmol/L (98-107); SODIUM,NA 141 mmol/L (136-145)
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
--- NOTE | 2021-01-01 11:53 | CR ---
EXAMINATION: Chest 1V Frontal SEX: Female AGE: 35 years CLINICAL HISTORY: 37-year-old female in the emergency department with chest pain. No comparisons immediately available at this institution. Interpretation: Negative exam. External cardiac specialist leads (ear rings foreign bodies and gown snap). Normal cardiac silhouette (size and configuration). Left-sided aortic arch. AP bony thorax unremarkable. No pulmonary vascular congestion, cephalization of flow, alveolar edema or dependent pleural effusion. No pneumothorax/pneumomediastinum. Midline tracheal bronchial airway unremarkable. No free subdiaphragmatic air. No alveolar infiltrate, air bronchograms, lung mass, hilar lymphadenopathy or peripheral "groundglass" interstitial lung densities.
[2021-01-01 13:50] LABS: MDMA (ECSTASY), URINE POSITIVE (NEGATIVE); METHADONE,URINE NEGATIVE (NEGATIVE); METHAMPHETAMINES,URINE POSITIVE (NEGATIVE); OPIATES,URINE NEGATIVE (NEGATIVE)
[2021-01-01 13:51] LABS: AMPHETAMINES,URINE POSITIVE (NEGATIVE); BARBITURATES,URINE NEGATIVE (NEGATIVE); BENZODIAZEPINE,URINE POSITIVE (NEGATIVE); OXYCODONE,URINE NEGATIVE (NEGATIVE); PHENCYCLIDINE,URINE NEGATIVE (NEGATIVE); TCA,URINE NEGATIVE (NEGATIVE)
[2021-01-01 14:12] VITALS: BP 122/98; PULSE 126
[2021-01-01] MEDS ORDERED: Sodium Chloride 0.9% 1,000 ML IV SCH (14:45)
== END 2021-01-01 15:45 ==
LOC: DL.ED 09:33
DX: R07.9 Chest pain, unspecified (principal); R79.89 Other specified abnormal findings of blood chemistry; F15.10 Other stimulant abuse, uncomplicated; F10.10 Alcohol abuse, uncomplicated; R00.0 Tachycardia, unspecified; Z87.891 Personal history of nicotine dependence; Z88.1 Allergy status to other antibiotic agents; Z88.2 Allergy status to sulfonamides; Z20.822 Contact with and (suspected) exposure to COVID-19
CPT/HCPCS: 36415; 71045; 80053; 80305; 80307; 81003; 82550; 84484; 85025; 85610; 87635; 93005; 96374; 96376; 99285; J2060; J7030; 93010; 99284; U0002

== ENCOUNTER 2021-01-07 10:00 | Emergency (ER) | payer MEDICAID ==
--- NOTE | 2021-01-07 10:13 | EDM.PDOC ---
ED HPI GENERAL MEDICAL PROBLEM - General Chief Complaint: Chest Pain Stated Complaint: CHEST PAIN Time Seen by Provider: 01/07/21 10:13 Source of Information: Reports: Patient, Old Records, RN, RN Notes Reviewed History Limitations: Reports: No Limitations - History of Present Illness INITIAL COMMENTS - FREE TEXT/NARRATIVE: Pt brought to ER from the [facility] with c/o chest pain. Upon initial encounter the pt states that she primarily has upper abdominal pain with acid and burning up threw her chest to the back of her mouth. Pt admits to recurring nausea and vomiting. She was discharged to CRU from the hospital on 01/05/21 with Protonix prescribed, but she did not get the first dose until yesterday. Pt admits to nausea and acid reflux. Denies shortness of breath, bloody, dark, or melanotic stools. Pt states she has not drank alcohol or used drugs since 01/04/21. Pt was admitted at [facility] on 01/01/21 due to chest pain with a slight Troponin bump. Onset: Unknown/Unsure Duration: Week(s): (1-2), Constant, Getting Worse, Recurring, Waxing/Waning Location: Reports: Abdomen Quality: Reports: Ache, Burning Severity: Severe Improves with: Reports: None Worsens with: Reports: Eating Associated Symptoms: Reports: No Other Symptoms Lower Sternum Pain Score (Numeric/FACES): 8 - Related Data Allergies Allergy/AdvReac Type Severity Reaction Status Date / Time azithromycin [From Zithromax] Allergy Diarrhea Verified 01/07/21 10:17 Sulfa (Sulfonamide Allergy Other Verified 01/07/21 10:17 Antibiotics) trimethoprim Allergy Other Verified 01/07/21 10:17 Home Meds: Home Meds Pantoprazole Sodium [Protonix] 40 mg PO BID 30 Days #60 tablet. 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 Musculoskeletal History: Reports: Back Pain, Chronic Other Musculoskeletal History: left breast cyst removed Neurological History: Reports: Concussion, Head Trauma Psychiatric History: Reports: Addiction, Anxiety, Depression, PTSD Hematologic History: Reports: Anemia - Infectious Disease History Infectious Disease History: Reports: Hepatitis C - Past Surgical History Female Surgical History: Reports: Breast Biopsy Social & Family History - Family History Family Medical History: Unobtainable Cardiac: Reports: CAD Endocrine/Metabolic: Reports: Diabetes, type II - Caffeine Use Caffeine Use: Reports: Soda - Alcohol Use Alcohol Use History: Yes Date of Last Drink: 01/04/21 Alcohol Use Frequency: Binges, Daily - Recreational Drug Use Recreational Drug Use: Yes Drug Use in Last 12 Months: Yes Recreational Drug Type: Reports: Benzodiazepines, Methamphetamine Recreational Drug Use Frequency: Binges - Living Situation & Occupation Living situation: Reports: Other (In CRU as of 01/07/21) ED ROS GENERAL - Review of Systems Review Of Systems: Comprehensive ROS is negative, except as noted in HPI. ED EXAM, GENERAL - Physical Exam Exam: See Below Exam Limited By: No Limitations General Appearance: Alert, WD/WN, No Apparent Distress Eye Exam: Bilateral Eye: Normal Inspection (No scleral icterus) Nose: Normal Inspection Throat/Mouth: Normal Lips, Normal Voice, No Airway Compromise, Other (Dry oral membranes) Head: Atraumatic, Normocephalic Neck: Normal Inspection, Supple, Non-Tender, Full Range of Motion Respiratory/Chest: No Respiratory Distress, Lungs Clear, Normal Breath Sounds, No Accessory Muscle Use, Chest Non-Tender Cardiovascular: Normal Peripheral Pulses, Regular Rate, Rhythm, No Edema GI/Abdominal: Normal Bowel Sounds, Soft, No Distention, No Abnormal Bruit, Tender (Episgastric tenderness). No: Guarding, Rigid, Rebound (Female) Exam: Deferred Rectal (Female) Exam: Deferred Back Exam: Normal Inspection Extremities: Normal Inspection, Normal Range of Motion, Non-Tender, Normal Capillary Refill, No Pedal Edema Neurological: Alert, Oriented, CN II-XII Intact, Normal Cognition, Normal Gait, No Motor/Sensory Deficits Psychiatric: Depressed Mood, Flat Affect Skin Exam: Warm, Dry, Intact, Normal Color, No Rash. No: Ecchymosis, Jaundice, Petechiae #1 Interpretation EKG Date: 01/07/21 Time: 10:28 Rhythm: Other (SR) Rate (Beats/Min): 78 [place]: LAD-Left [place] Deviation P-Wave: Present QRS: Normal ST-T: Other (borderline T-wave abnormalities in anterior leads) QT: Normal Comparison: No Change Course - Vital Signs Last Recorded V/S: Last Vital Signs Temp 95.9 F L 01/07/21 10:24 Pulse 84 01/07/21 10:24 Resp 18 01/07/21 10:24 BP 126/76 01/07/21 10:24 Pulse Ox 99 01/07/21 10:24 - Orders/Labs/Meds Orders: Active Orders 24 hr Category Date Time Status EKG 12 Lead [EKG Documentation Completion] [RC] STAT Care 01/07/21 10:14 Active Peripheral IV Care [RC] . DIRECTED Care 01/07/21 10:14 Active CULTURE URINE [RM] Stat Lab 01/07/21 11:30 Received STD PANEL 3 [REF] Routine Lab 01/07/21 11:30 Received Sodium Chloride 0.9% [Saline Flush] Med 01/07/21 10:13 Active 10 ml FLUSH ASDIRECTED PRN Peripheral IV Insertion Adult [OM.PC] Stat Oth 01/07/21 10:14 Ordered Medication Orders Sodium Chloride (Sodium Chloride 0.9% 10 Ml Syringe) 10 ml FLUSH ASDIRECTED PRN PRN Reason: Keep Vein Open Last Admin: 01/07/21 14:00 Dose: 10 ml Documented by: Admin: 01/07/21 10:53 Dose: 10 ml Documented by: SHANTE Labs: Laboratory Tests 01/07/21 01/07/21 01/07/21 Range/Units 10:42 10:42 10:42 WBC 8.2 (5.0-10.0) 10^3/uL RBC 3.88 L (4.2-5.4) 10^6/uL Hgb 11.9 L (12.0-16.0) g/dL Hct 35.8 L (37.0-47.0) % MCV 92.3 (80-100) fL MCH 30.7 (27.0-34.0) pg MCHC 33.2 (33.0-35.0) g/dL Plt Count 364 (150-450) 10^3/uL Neut % (Auto) 73.7 (42.2-75.2) % Lymph % (Auto) 15.7 L (20.5-50.1) % [place] % (Auto) 8.9 H (2-8) % Eos % (Auto) 1.5 (1.0-3.0) % Baso % (Auto) 0.2 (0.0-1.0) % D-Dimer, Quantitative 2470 H (0-400) ng/mL Sodium 132 L (136-145) mmol/L Potassium 3.5 (3.5-5.1) mmol/L Chloride 96 L (98-107) mmol/L Carbon Dioxide 24 (21-32) mmol/L Anion Gap 15.5 H (7-13) mEq/L BUN 7 (7-18) mg/dL Creatinine 0.54 L (0.55-1.02) mg/dL Est Cr Clr Drug Dosing TNP Estimated GFR (MDRD) > 60 BUN/Creatinine Ratio 13.0 (No establ ref range) Glucose 103 H (70-99) mg/dL Calcium 8.6 (8.5-10.1) mg/dL Total Bilirubin 1.2 H (0.2-1.0) mg/dL AST 67 H (15-37) U/L ALT 129 H (14-59) U/L Alkaline Phosphatase 88 (46-116) U/L Troponin I High Sens < 4 (<=51) pg/mL Total Protein 8.0 (6.4-8.2) g/dL Albumin 3.2 L (3.4-5.0) g/dL Globulin 4.8 Albumin/Globulin Ratio 0.67 Amylase 21 L (25-115) U/L Lipase 104 (73-393) U/L Urine Color (YELLOW) Urine Appearance (CLEAR) Urine pH (5.0-9.0) Ur Specific [place] (1.005-1.030) Urine Protein (NEGATIVE) Urine Glucose (UA) (NEGATIVE) Urine Ketones (NEGATIVE) Urine Occult Blood (NEGATIVE) Urine Nitrite (NEGATIVE) Urine Bilirubin (NEGATIVE) Urine Urobilinogen (0.2-1.0) mg/dL Ur Leukocyte Esterase (NEGATIVE) Urine RBC (0-5) /HPF Urine WBC (0-5/HPF) /HPF Ur Epithelial Cells (NOT SEEN) /HPF Urine Bacteria (0-FEW/HPF) /HPF Urine Mucus (NOT SEEN) /LPF Urine Trichomonas (NOT SEEN) /HPF Urine HCG, Qual Urine Opiates Screen (NEGATIVE) Ur Oxycodone Screen (NEGATIVE) Urine Methadone Screen (NEGATIVE) Ur Barbiturates Screen (NEGATIVE) U Tricyclic Antidepress (NEGATIVE) Ur Phencyclidine Scrn (NEGATIVE) Ur Amphetamine Screen (NEGATIVE) U Methamphetamines Scrn (NEGATIVE) Urine MDMA Screen (NEGATIVE) U Benzodiazepines Scrn (NEGATIVE) Urine Cocaine Screen (NEGATIVE) U Marijuana (THC) Screen (NEGATIVE) Ethyl Alcohol < 3 (0) mg/dL 01/07/21 01/07/21 01/07/21 Range/Units 11:30 11:30 11:30 WBC (5.0-10.0) 10^3/uL RBC (4.2-5.4) 10^6/uL Hgb (12.0-16.0) g/dL Hct (37.0-47.0) % MCV (80-100) fL MCH (27.0-34.0) pg MCHC (33.0-35.0) g/dL Plt Count (150-450) 10^3/uL Neut % (Auto) (42.2-75.2) % Lymph % (Auto) (20.5-50.1) % [place] % (Auto) (2-8) % Eos % (Auto) (1.0-3.0) % Baso % (Auto) (0.0-1.0) % D-Dimer, Quantitative (0-400) ng/mL Sodium (136-145) mmol/L Potassium (3.5-5.1) mmol/L Chloride (98-107) mmol/L Carbon Dioxide (21-32) mmol/L Anion Gap (7-13) mEq/L BUN (7-18) mg/dL Creatinine (0.55-1.02) mg/dL Est Cr Clr Drug Dosing Estimated GFR (MDRD) BUN/Creatinine Ratio (No establ ref range) Glucose (70-99) mg/dL Calcium (8.5-10.1) mg/dL Total Bilirubin (0.2-1.0) mg/dL AST (15-37) U/L ALT (14-59) U/L Alkaline Phosphatase (46-116) U/L Troponin I High Sens (<=51) pg/mL Total Protein (6.4-8.2) g/dL Albumin (3.4-5.0) g/dL Globulin Albumin/Globulin Ratio Amylase (25-115) U/L Lipase (73-393) U/L Urine Color [place] (YELLOW) Urine Appearance Cloudy (CLEAR) Urine pH 7.0 (5.0-9.0) Ur Specific [place] 1.020 (1.005-1.030) Urine Protein Trace H (NEGATIVE) Urine Glucose (UA) Negative (NEGATIVE) Urine Ketones 15 H (NEGATIVE) Urine Occult Blood Large H (NEGATIVE) Urine Nitrite Negative (NEGATIVE) Urine Bilirubin Negative (NEGATIVE) Urine Urobilinogen 1.0 (0.2-1.0) mg/dL Ur Leukocyte Esterase Trace H (NEGATIVE) Urine RBC >100 H (0-5) /HPF Urine WBC 5-10 H (0-5/HPF) /HPF Ur Epithelial Cells Few (NOT SEEN) /HPF Urine Bacteria Few (0-FEW/HPF) /HPF Urine Mucus Moderate H (NOT SEEN) /LPF Urine Trichomonas Present H (NOT SEEN) /HPF Urine HCG, Qual Negative Urine Opiates Screen Negative (NEGATIVE) Ur Oxycodone Screen Negative (NEGATIVE) Urine Methadone Screen Negative (NEGATIVE) Ur Barbiturates Screen Negative (NEGATIVE) U Tricyclic Antidepress Negative (NEGATIVE) Ur Phencyclidine Scrn Negative (NEGATIVE) Ur Amphetamine Screen Negative (NEGATIVE) U Methamphetamines Scrn Negative (NEGATIVE) Urine MDMA Screen Negative (NEGATIVE) U Benzodiazepines Scrn Positive H (NEGATIVE) Urine Cocaine Screen Negative (NEGATIVE) U Marijuana (THC) Screen Negative (NEGATIVE) Ethyl Alcohol (0) mg/dL Meds: Medications Generic Name Dose Route Start Last Admin Trade Name Freq PRN Reason Stop Dose Admin Sodium Chloride 10 ml 01/07/21 10:13 01/07/21 14:00 Sodium Chloride 0.9% 10 Ml Syringe FLUSH 10 ml ASDIRECTED PRN Administration Keep Vein Open Discontinued Medications Generic Name Dose Route Start Last Admin Trade Name Freq PRN Reason Stop Dose Admin Al Hydroxide/Mg Hydroxide 30 ml 01/07/21 10:15 01/07/21 11:15 Gi Cocktail Oral Solution 30 Ml PO 01/07/21 10:16 30 ml ONETIME ONE Administration Famotidine 20 mg 01/07/21 10:15 01/07/21 10:51 Famotidine 20 Mg/2 Ml Sdv IVPUSH 01/07/21 10:16 20 mg ONETIME ONE Administration Hydromorphone HCl 1 mg 01/07/21 14:49 Hydromorphone 1 Mg/Ml Syringe IVPUSH 01/07/21 14:50 ONETIME ONE Multivitamins/Minerals 10 ml/ 1,011.2 mls @ 999 mls/hr 01/07/21 10:15 01/07/21 13:59 Thiamine HCl 100 mg/ Folic IV 01/07/21 11:15 Infused Acid 1 mg/ Lactated Ringer's .BOLUS ONE Infusion Metronidazole 500 mg/ Premix 100 mls @ 100 mls/hr 01/07/21 13:10 01/07/21 13:59 IV 01/07/21 14:09 100 mls/hr ONETIME ONE Administration Iopamidol 100 ml 01/07/21 11:26 01/07/21 13:37 Iopamidol 755 Mg/Ml 100 Ml Bottle IVPUSH 01/07/21 11:27 116 ml ONETIME ONE Administration Lidocaine HCl 15 ml 01/07/21 14:05 01/07/21 14:33 Lidocaine 2% Viscous Solution 15 Ml Cup PO 01/07/21 14:06 15 ml ONETIME ONE Administration Ondansetron HCl 4 mg 01/07/21 10:15 01/07/21 10:51 Ondansetron 4 Mg/2 Ml Sdv IV 01/07/21 10:16 4 mg ONETIME ONE Administration Ondansetron HCl 4 mg 01/07/21 14:50 Ondansetron 4 Mg/2 Ml Sdv IV 01/07/21 14:51 ONETIME ONE Sucralfate 1 gm 01/07/21 14:04 01/07/21 14:33 Sucralfate Suspension 1 Gm/10 Ml Cup PO 01/07/21 14:05 1 gm ONETIME ONE Administration - Radiology Interpretation Free Text/Narrative:: Chest CT: Cholelithiasis and distended gallbladder. Bibasilar atelectasis. No sign of pulmonary embolism/infarct, heart failure, or lobar pneumonia. See rad report. Abdomen ultrasound: Gallbladder distended in the right upper quadrant and has a uniformly thin wall and shows no sign of pericystic fluid. No fixed mucosal wall polyp or mass lesion, however, there is a solitary mass lesion or abnormal dilatation of the intra or extrahepatic ducts. A2cm immobile gallbladder wedged in the dependent portion of the gallbladder blocking at the origin of the cystic duct. See rad report. Departure - Departure Time of Disposition: 15:39 Disposition: DC/Tfer to Acute Hospital 02 Reason for Transfer *Q: Other Condition: Good Clinical Impression: Trichimoniasis, Alcohol abuse, Substance abuse Cholelithiasis Qualifiers: Cholelithiasis location: gallbladder Cholecystitis presence: without cholecystitis Biliary obstruction: without biliary obstruction Qualified Code(s): K80.20 - Calculus of gallbladder without cholecystitis without obstruction Forms: ED Department Discharge, Interfacility [facility] Sepsis Event Note (ED) - Focused Exam Vital Signs: Vital Signs Temp Pulse Resp BP Pulse Ox 01/07/21 10:24 95.9 F L 84 18 126/76 99 - My Orders Last 24 Hours: My Active Orders 01/07/21 10:13 Sodium Chloride 0.9% [Saline Flush] 10 ml FLUSH ASDIRECTED PRN 01/07/21 10:14 EKG 12 Lead [EKG Documentation Completion] [RC] STAT Peripheral IV Care [RC] . DIRECTED Peripheral IV Insertion Adult [OM.PC] Stat 01/07/21 11:30 CULTURE URINE [RM] Stat STD PANEL 3 [REF] Routine - Assessment/Plan Last 24 Hours: My Active Orders 01/07/21 10:13 Sodium Chloride 0.9% [Saline Flush] 10 ml FLUSH ASDIRECTED PRN 01/07/21 10:14 EKG 12 Lead [EKG Documentation Completion] [RC] STAT Peripheral IV Care [RC] . DIRECTED Peripheral IV Insertion Adult [OM.PC] Stat 01/07/21 11:30 CULTURE URINE [RM] Stat STD PANEL 3 [REF] Routine
[2021-01-07] MEDS ORDERED: Famotidine 20 MG/2 ML SDV IVPUSH ONE (10:15)
[2021-01-07] MEDS ORDERED: GI Cocktail Oral Solution 30 ML PO ONE (10:15)
[2021-01-07] MEDS ORDERED: Ondansetron 4 MG/2 ML SDV IV ONE ×2 (10:15→14:50)
[2021-01-07] MEDS ORDERED: MVI, Adult with Vitamin K 10 ML, Thiamine 100 MG, Folic Acid 1 MG in Lactated Ringers 1... IV ONE ×4 (10:15)
[2021-01-07 10:25] VITALS: BP 126/76; PULSE 84
[2021-01-07] MEDS: Sodium Chloride 0.9% 10 ML Syringe FLUSH PRN ×2 (10:53→14:00)
[2021-01-07 11:12] LABS: ANION GAP 15.5 mEq/L (7-13); CHLORIDE,CL 96 mmol/L (98-107); SODIUM,NA 132 mmol/L (136-145)
[2021-01-07] MEDS ORDERED: Iopamidol 755 Mg/ML 100 ML Bottle IVPUSH ONE (11:26)
[2021-01-07 11:57] LABS: AMPHETAMINES,URINE NEGATIVE (NEGATIVE); BARBITURATES,URINE NEGATIVE (NEGATIVE); BENZODIAZEPINE,URINE POSITIVE (NEGATIVE); MDMA (ECSTASY), URINE NEGATIVE (NEGATIVE); METHADONE,URINE NEGATIVE (NEGATIVE); METHAMPHETAMINES,URINE NEGATIVE (NEGATIVE); OPIATES,URINE NEGATIVE (NEGATIVE); OXYCODONE,URINE NEGATIVE (NEGATIVE); PHENCYCLIDINE,URINE NEGATIVE (NEGATIVE); TCA,URINE NEGATIVE (NEGATIVE)
[2021-01-07] MEDS ORDERED: metroNIDAZOLE/Normal Saline 500 MG in Premix Bag 100 BAG IV ONE (13:10)
[2021-01-07] MEDS ORDERED: Sucralfate Suspension 1 GM/10 ML Cup PO ONE (14:04)
[2021-01-07] MEDS ORDERED: Lidocaine 2% Viscous Solution 15 ML Cup PO ONE (14:05)
--- NOTE | 2021-01-07 14:07 | CT ---
EXAMINATION: Chest w Cont SEX: Female AGE: 35 years CLINICAL HISTORY: 35-year-old 141 pound female with chest pain. Significantly, history of IV drug use. Abnormally elevated serum D dimer (greater than 2400). Scan technique: Volume acquisition of data from the chest obtained during the intravenous infusion 58 cc (x2) nonionic Isovue 370 contrast while patient was lying supine at 4 cc/s via injector while patient was lying supine on the Siemens multislice scanner [place], [place]. All data archived in the PACS system for storage, reformatting axial/sagittal/coronal planes and study. Interpretation: 1. Patchy platelike atelectasis both lung bases. 2. No sign of intraluminal filling defect or thrombus within the main pulmonary artery circulation. No abnormal areas of focal lobar oligemia or peripheral pleural-based wedge shaped infarcts. No pleural effusions 3. Normal cardiac silhouette. No pericardial effusions, pulmonary vascular congestion or alveolar edema. 4. No alveolar infiltrates, air bronchograms, lobar collapse or peripheral "groundglass" interstitial lung densities. 5. Normal caliber thoracic aorta. Dorsal spine unremarkable. 6. No suspicious lung nodule or mass lesion. No hilar or mediastinal lymphadenopathy. 7. No cystic or bullous emphysematous lesions. No abnormal air trapping. No abscess. 8. Fatty liver. Diseased gallbladder (large concentrically calcified gallstone impacted at the cystic duct i.e. distended gallbladder). No pericystic fluid or abnormal biliary duct dilatation. CONCLUSION: Cholelithiasis and distended gallbladder. Bibasilar atelectasis. No sign of pulmonary embolism/infarct, heart failure, or lobar pneumonia.
[2021-01-07] MEDS ORDERED: HYDROmorphone 1 MG/ML Syringe IVPUSH ONE (14:49)
--- NOTE | 2021-01-07 15:20 | US ---
EXAMINATION: Abdomen LIMITED SEX: Female AGE: 35 years CLINICAL HISTORY: 35-year-old patient with upper abdominal pain. "Cholelithiasis" reported on recent CT exam chest. Interpretation: Abnormal. Gallbladder distended in the right upper quadrant has a uniformly thin wall and shows no sign of pericystic fluid. No fixed mucosal wall polyp or mass lesion however there is a solitary large echogenic GALLSTONE impacted in the cystic duct. Homogeneously echodense fatty liver. No discrete intrahepatic mass lesion or abnormal dilatation of the intra or extrahepatic biliary ducts. No ascites. CONCLUSION: Cholelithiasis.
[2021-01-13 12:47] LABS: C.TRACHOMATIS BY TMA Negative (Negative); N.GONORRHOEAE BY TMA Negative (Negative)
== END 2021-01-07 16:54 ==
LOC: DL.ED 10:00
DX: K80.20 Calculus of gallbladder without cholecystitis without obstruction (principal); A59.9 Trichomoniasis, unspecified; F10.10 Alcohol abuse, uncomplicated; F19.10 Other psychoactive substance abuse, uncomplicated; I25.2 Old myocardial infarction; Z79.899 Other long term (current) drug therapy; Z88.1 Allergy status to other antibiotic agents; Z88.2 Allergy status to sulfonamides; Y90.5 Blood alcohol level of 100-119 mg/100 ml
CPT/HCPCS: 36415; 71260; 76705; 80053; 80305; 80307; 81001; 81025; 82150; 83690; 84484; 85025; 85379; 87086; 87491; 87563; 87591; 93005; 96365; 96366; 96367; 96375; 96376; 99285; A9270; J1170; J2405; J3411; J3490; J7120; Q9967

== ENCOUNTER 2021-01-08 20:32 | Emergency (ER) | payer MEDICAID ==
[2021-01-08] MEDS ORDERED: Ibuprofen 600 MG Tab PO ONE (20:33)
[2021-01-08] MEDS ORDERED: Acetaminophen/HYDROcodone 325-10 MG Tab PO ONE (20:33)
[2021-01-08] MEDS ORDERED: Ondansetron 4 MG/2 ML SDV IVPUSH ONE (21:03)
[2021-01-08] MEDS ORDERED: fentaNYL 100 MCG/2 ML SDV IVPUSH ONE (21:04)
--- NOTE | 2021-01-08 21:21 | EDM.PDOC ---
ED HPI GENERAL MEDICAL PROBLEM - General Chief Complaint: Gastrointestinal Problem Stated Complaint: TUBE FROM GALBLADDER, CHEST PAINS Time Seen by Provider: 01/08/21 20:45 Source of Information: Reports: Patient History Limitations: Reports: No Limitations - History of Present Illness INITIAL COMMENTS - FREE TEXT/NARRATIVE: ED with c/o RUQ pain, Hx gall bladder disease, stone in CBD, drain tube placed today. Surgery pending in 4-6 weeks, reports recent AR so has to wait for surgery. No fever. Givn something for pain with procedure. Currently at CRU so not given anything for pain other than tylenol or Ibuprofen. primary drug ETOH and meth in past. Right Pain Score (Numeric/FACES): 10 - Related Data Allergies Allergy/AdvReac Type Severity Reaction Status Date / Time azithromycin [From Zithromax] Allergy Diarrhea Verified 01/07/21 10:17 Sulfa (Sulfonamide Allergy Other Verified 01/07/21 10:17 Antibiotics) trimethoprim Allergy Other Verified 01/07/21 10:17 Home Meds: Home Meds Pantoprazole Sodium [Protonix] 40 mg PO BID 30 Days #60 tablet. 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 Musculoskeletal History: Reports: Back Pain, Chronic Other Musculoskeletal History: left breast cyst removed Neurological History: Reports: Concussion, Head Trauma Psychiatric History: Reports: Addiction, Anxiety, Depression, PTSD Hematologic History: Reports: Anemia - Infectious Disease History Infectious Disease History: Reports: Hepatitis C - Past Surgical History Cardiovascular Surgical History: Reports: None GI Surgical History: Reports: None Female Surgical History: Reports: Breast Biopsy Other Female Surgeries/Procedures: left breast cyst removed Musculoskeletal Surgical History: Reports: None Social & Family History - Family History Family Medical History: Unobtainable Cardiac: Reports: CAD Endocrine/Metabolic: Reports: Diabetes, type II - Tobacco Use Tobacco Use Status *Q: Never Tobacco User Second Hand Smoke Exposure: No - Caffeine Use Caffeine Use: Reports: None - Recreational Drug Use Recreational Drug Use: No - Living Situation & Occupation Living situation: Reports: Other (In CRU as of 01/07/21) ED ROS GENERAL - Review of Systems Review Of Systems: Comprehensive ROS is negative, except as noted in HPI. ED EXAM, GI/ABD - Physical Exam Exam: See Below Exam Limited By: No Limitations General Appearance: Alert, Moderate Distress Eyes: Bilateral: EOMI Ears: Normal External Exam Nose: Normal Inspection Throat/Mouth: Normal Inspection Head: Atraumatic, Normocephalic Neck: Normal Inspection Respiratory/Chest: No Respiratory Distress Cardiovascular: Normal Peripheral Pulses, Regular Rate, Rhythm GI/Abdominal Exam: Soft, Tender (RUQ SILAS drain in place.), Abnormal Bowel Sounds (decreased) Back Exam: Normal Inspection, Full Range of Motion Extremities: Normal Inspection, Normal Range of Motion Neurological: Alert, Oriented, Normal Cognition Skin Exam: Warm, Dry Course - Vital Signs Last Recorded V/S: Last Vital Signs Temp 96.2 F L 01/08/21 20:35 Pulse 91 01/08/21 23:51 Resp 18 01/08/21 23:51 BP 95/64 01/08/21 23:51 Pulse Ox 98 01/08/21 23:51 - Orders/Labs/Meds Labs: Laboratory Tests 01/08/21 01/08/21 Range/Units 21:15 21:15 WBC 9.0 (5.0-10.0) 10^3/uL RBC 3.87 L (4.2-5.4) 10^6/uL Hgb 11.8 L (12.0-16.0) g/dL Hct 35.7 L (37.0-47.0) % MCV 92.2 (80-100) fL MCH 30.5 (27.0-34.0) pg MCHC 33.1 (33.0-35.0) g/dL Plt Count 418 (150-450) 10^3/uL Neut % (Auto) 75.8 H (42.2-75.2) % Lymph % (Auto) 13.1 L (20.5-50.1) % [place] % (Auto) 10.2 H (2-8) % Eos % (Auto) 0.7 L (1.0-3.0) % Baso % (Auto) 0.2 (0.0-1.0) % Sodium 135 L (136-145) mmol/L Potassium 3.5 (3.5-5.1) mmol/L Chloride 96 L (98-107) mmol/L Carbon Dioxide 25 (21-32) mmol/L Anion Gap 17.5 H (7-13) mEq/L BUN 6 L (7-18) mg/dL Creatinine 0.61 (0.55-1.02) mg/dL Est Cr Clr Drug Dosing 100.84 mL/min Estimated GFR (MDRD) > 60 BUN/Creatinine Ratio 9.8 (No establ ref range) Glucose 109 H (70-99) mg/dL Calcium 8.6 (8.5-10.1) mg/dL Total Bilirubin 1.1 H (0.2-1.0) mg/dL AST 66 H (15-37) U/L ALT 124 H (14-59) U/L Alkaline Phosphatase 141 H (46-116) U/L Total Protein 7.7 (6.4-8.2) g/dL Albumin 3.2 L (3.4-5.0) g/dL Globulin 4.5 Albumin/Globulin Ratio 0.71 Amylase 18 L (25-115) U/L Lipase 78 (73-393) U/L Meds: Medications Discontinued Medications Generic Name Dose Route Start Last Admin Trade Name Anandq PRN Reason Stop Dose Admin Hydrocodone Bitart/Acetaminophen Confirm 01/08/21 23:43 01/09/21 00:32 Acetaminophen/Hydrocodone 325-10 Mg Tab Administered 01/08/21 23:44 Not Given Dose 4 tab .ROUTE .STK-MED ONE Fentanyl 50 mcg 01/08/21 21:04 01/08/21 21:16 Fentanyl 100 Mcg/2 Ml Sdv IVPUSH 01/08/21 21:05 50 mcg ONETIME ONE Administration Ibuprofen Confirm 01/08/21 23:43 01/09/21 00:32 Ibuprofen 600 Mg Tab Administered 01/08/21 23:44 Not Given Dose 2,400 mg .ROUTE .STK-MED ONE Iopamidol 100 ml 01/08/21 21:46 01/08/21 22:02 Iopamidol 612 Mg/Ml 100 Ml Bottle IVPUSH 01/08/21 21:47 100 ml ONETIME ONE Administration Ketorolac Tromethamine 30 mg 01/08/21 21:49 01/08/21 21:56 Ketorolac 30 Mg/Ml Sdv IVPUSH 01/08/21 21:50 30 mg ONETIME ONE Administration Ondansetron HCl 4 mg 01/08/21 21:03 01/08/21 21:15 Ondansetron 4 Mg/2 Ml Sdv IVPUSH 01/08/21 21:04 4 mg ONETIME ONE Administration Departure - Departure Time of Disposition: 23:55 Disposition: Home, Self-Care 01 Condition: Good Clinical Impression: Abdominal pain Cholelithiases Qualifiers: Cholelithiasis location: gallbladder Cholecystitis presence: without cholecystitis Biliary obstruction: without biliary obstruction Qualified Code(s): K80.20 - Calculus of gallbladder without cholecystitis without obstruction - Discharge Information *PRESCRIPTION DRUG MONITORING PROGRAM REVIEWED*: No *COPY OF PRESCRIPTION DRUG MONITORING REPORT IN PATIENT MALOU: No Instructions: Cholelithiasis, [id number] Referrals: PCP,None [Primary Care Provider] - Forms: ED Department Discharge Additional Instructions: light bland low fat diet hydrocodone/ APAP 10/325 one every 6 hours x 4 doses Ibuprofen 600mg every 6 hours Original tylenol order on hold x 24 hours then may resume light activity clinic follow up monday chaparro appointment as scheduled Sepsis Event Note (ED) - Evaluation Sepsis Screening Result: No Definite Risk
[2021-01-08 21:42] LABS: ANION GAP 17.5 mEq/L (7-13); CHLORIDE,CL 96 mmol/L (98-107); SODIUM,NA 135 mmol/L (136-145)
[2021-01-08] MEDS ORDERED: Iopamidol 612 MG/ML 100 ML Bottle IVPUSH ONE (21:46)
[2021-01-08] MEDS ORDERED: Ketorolac 30 MG/ML SDV IVPUSH ONE (21:49)
--- NOTE | 2021-01-08 23:11 | CT ---
PROCEDURE INFORMATION: Exam: CT Abdomen And Pelvis With Contrast Exam date and time: 01/08/2021 10:19 PM Age: 35 years old Clinical indication: Other: Drain placed today; Additional info: Abdominal pain, stone cbd, drain placed TECHNIQUE: Imaging protocol: Computed tomography of the abdomen and pelvis with contrast. Radiation optimization: All CT scans at this facility use at least one of these dose optimization techniques: automated exposure control; mA and/or kV adjustment per patient size (includes targeted exams where dose is matched to clinical indication); or iterative reconstruction. Contrast material: [id number]; Contrast volume: 75 ml; Contrast route: INTRAVENOUS (IV); COMPARISON: No relevant prior studies available. FINDINGS: Lungs: Mild bibasilar atelectasis or scarring. Liver: There is a trace anterior subcapsular fluid collection that is fairly hypodense. It is favored to represent bile, but blood is also possible. Maximum thickness is about 5 mm. Total volume is estimated at about 4 cc maximum. Gallbladder and bile ducts: Percutaneous cholecystostomy tube noted. Gallstone is seen. Gallbladder wall thickening is moderate. Pancreas: Normal. No ductal dilation. Spleen: Normal. No splenomegaly. Adrenal glands: Normal. No mass. Kidneys and ureters: Normal. No hydronephrosis. Stomach and bowel: Unremarkable. No obstruction. No mucosal thickening. Appendix: Appendix is normal. Intraperitoneal space: Unremarkable. No free air. No significant fluid collection. Vasculature: Unremarkable. No abdominal aortic aneurysm. Lymph nodes: Unremarkable. No enlarged lymph nodes. Urinary bladder: Unremarkable as visualized. Reproductive: There is a mixed density structure on the right adnexum a contains macroscopic fat. It is most likely dermoid or teratoma. It measures about 3.4 x 3.7 cm. Bones/joints: Unremarkable. No acute fracture. Soft tissues: Unremarkable. IMPRESSION: 1. Recently placed gallbladder tube noted. Stones and wall thickening are seen. A trace subcapsular hepatic fluid collection may be related and could represent bile or blood. 2. A 3.7 cm structure in the right adnexa is probably a teratoma or dermoid. Consider correlation with recent ultrasound.
[2021-01-08] MEDS ORDERED: Acetaminophen/HYDROcodone 325-10 MG Tab ONE (23:43)
[2021-01-08] MEDS ORDERED: Ibuprofen 600 MG Tab ONE (23:43)
[2021-01-08 23:52] VITALS: BP 95/64; PULSE 91
== END 2021-01-09 00:46 | disposition home or self-care (01) ==
LOC: DL.ED 20:32
DX: K80.20 Calculus of gallbladder without cholecystitis without obstruction (principal); I25.2 Old myocardial infarction; Z88.1 Allergy status to other antibiotic agents; Z88.2 Allergy status to sulfonamides; Z79.899 Other long term (current) drug therapy
CPT/HCPCS: 36415; 74177; 80053; 82150; 83690; 85025; 96374; 96375; 99284; A9270; J1885; J2405; J3010; Q9967

== ENCOUNTER 2021-06-17 17:16 | Emergency (ER) | payer MEDICAID ==
[2021-06-17 17:20] VITALS: BP 123/88; PULSE 79
[2021-06-17 17:42] LABS: AMPHETAMINES,URINE NEGATIVE (NEGATIVE); BARBITURATES,URINE NEGATIVE (NEGATIVE); BENZODIAZEPINE,URINE POSITIVE (NEGATIVE); MDMA (ECSTASY), URINE NEGATIVE (NEGATIVE); METHADONE,URINE NEGATIVE (NEGATIVE); METHAMPHETAMINES,URINE NEGATIVE (NEGATIVE); OPIATES,URINE NEGATIVE (NEGATIVE); OXYCODONE,URINE NEGATIVE (NEGATIVE); PHENCYCLIDINE,URINE NEGATIVE (NEGATIVE); TCA,URINE NEGATIVE (NEGATIVE)
[2021-06-17 17:58] LABS: CHLORIDE,CL 107 mmol/L (98-107); SODIUM,NA 147 mmol/L (136-145)
[2021-06-17 18:00] LABS: ACETAMINOPHEN 0 ug/mL (10-30 (Therapeutic))
[2021-06-17] MEDS ORDERED: MVI, Adult with Vitamin K 10 ML, Folic Acid 1 MG, Thiamine 100 MG in Lactated Ringers 1... IV ONE ×4 (18:03)
[2021-06-17 18:09] LABS: CORONAVIRUS COVID-19 NAA NEGATIVE (NEGATIVE)
[2021-06-17] MEDS ORDERED: Folic Acid 50 MG/10 ML MDV ONE (18:11)
[2021-06-17] MEDS ORDERED: Thiamine 200 MG/2 ML MDV ONE (18:11)
[2021-06-17] MEDS ORDERED: Potassium Chloride 10 MEQ Tab.ER PO ONE (18:44)
== END 2021-06-17 20:27 | disposition home or self-care (01) ==
LOC: DL.ED 17:16
DX: F10.129 Alcohol abuse with intoxication, unspecified (principal); F13.10 Sedative, hypnotic or anxiolytic abuse, uncomplicated; E87.6 Hypokalemia; I25.2 Old myocardial infarction; Z88.1 Allergy status to other antibiotic agents; Z88.2 Allergy status to sulfonamides; Z20.822 Contact with and (suspected) exposure to COVID-19; Y90.8 Blood alcohol level of 240 mg/100 ml or more
CPT/HCPCS: 0240U; 36415; 80053; 80143; 80179; 80305; 80307; 81001; 83735; 84100; 84443; 85025; 87086; 93005; 96365; 99284; A9270; J3411; J7120; J3490

== ENCOUNTER 2021-07-16 12:02 | Emergency (ER) | payer MEDICAID ==
[2021-07-16] MEDS ORDERED: Sodium Chloride 0.9% 10 ML Syringe FLUSH PRN (13:12)
[2021-07-16 13:32] LABS: AMPHETAMINES,URINE NEGATIVE (NEGATIVE); BARBITURATES,URINE NEGATIVE (NEGATIVE); BENZODIAZEPINE,URINE NEGATIVE (NEGATIVE); MDMA (ECSTASY), URINE NEGATIVE (NEGATIVE); METHADONE,URINE NEGATIVE (NEGATIVE); METHAMPHETAMINES,URINE NEGATIVE (NEGATIVE); OPIATES,URINE NEGATIVE (NEGATIVE); OXYCODONE,URINE NEGATIVE (NEGATIVE); PHENCYCLIDINE,URINE NEGATIVE (NEGATIVE); TCA,URINE NEGATIVE (NEGATIVE)
[2021-07-16 14:00] LABS: ANION GAP 15.8 mEq/L (7-13); CHLORIDE,CL 102 mmol/L (98-107); SODIUM,NA 139 mmol/L (136-145)
[2021-07-16] MEDS ORDERED: Ondansetron 4 MG/2 ML SDV IV ONE (14:17)
[2021-07-16] MEDS ORDERED: Famotidine 20 MG/2 ML SDV IVPUSH ONE (14:17)
[2021-07-16] MEDS ORDERED: Potassium Chloride 10 MEQ Tab.ER PO ONE (14:18)
[2021-07-16] MEDS ORDERED: Potassium Chloride 20 MEQ in Premix Bag 1 BAG IV ONE (14:19)
[2021-07-16] MEDS ORDERED: Lidocaine 1% 30 ML SDV INJECT ONE (14:19)
[2021-07-16 14:56] LABS: CORONAVIRUS COVID-19 NAA NEGATIVE (NEGATIVE); RESPIRATORY SYNCYTIAL VIR NAA NEGATIVE (NEGATIVE)
[2021-07-16] MEDS ORDERED: Sodium Chloride 0.9% 1,000 ML IV SCH (15:15)
[2021-07-16 19:31] VITALS: BP 119/84; PULSE 96
== END 2021-07-16 20:20 | disposition other institution (70) ==
LOC: DL.ED 12:02
DX: R07.89 Other chest pain (principal); K70.9 Alcoholic liver disease, unspecified; E87.6 Hypokalemia; F10.10 Alcohol abuse, uncomplicated; I25.2 Old myocardial infarction; Z88.1 Allergy status to other antibiotic agents; Z88.2 Allergy status to sulfonamides; Z20.822 Contact with and (suspected) exposure to COVID-19; Z86.19 Personal history of other infectious and parasitic diseases
CPT/HCPCS: 0241U; 36415; 71045; 80053; 80305; 80307; 81001; 81025; 82150; 83690; 84132; 84484; 85025; 85379; 87086; 93005; 96365; 96366; 96375; 99285; A9270; J2405; J3480; J3490; J7030

== ENCOUNTER 2021-08-12 04:31 | Inpatient (IN) | payer MEDICAID ==
[~2021-08-12 04:31] MED LIST: LORazepam 2 MG/ML SDV IVPUSH ONE; MVI, Adult with Vitamin K 10 ML, Thiamine 100 MG, Folic Acid 1 MG in Lactated Ringers 1... IV ONE
[2021-08-12] MEDS ORDERED: Famotidine 20 MG/2 ML SDV IVPUSH ONE (04:40)
[2021-08-12 05:16] LABS: ANION GAP 20.3 mEq/L (7-13); CHLORIDE,CL 97 mmol/L (98-107); ESTIMATED GFR > 60; SODIUM,NA 135 mmol/L (136-145)
[2021-08-12 05:32] LABS: CORONAVIRUS COVID-19 NAA NEGATIVE (NEGATIVE)
[2021-08-12] MEDS ORDERED: LORazepam 2 MG/ML SDV IVPUSH ONE ×2 (05:43→06:21)
[2021-08-12] MEDS ORDERED: Sodium Chloride 0.9% 1,000 ML IV ONE ×2 (05:43→06:27)
[2021-08-12 06:06] LABS: AMPHETAMINES,URINE NEGATIVE (NEGATIVE); BARBITURATES,URINE NEGATIVE (NEGATIVE); BENZODIAZEPINE,URINE NEGATIVE (NEGATIVE); MDMA (ECSTASY), URINE NEGATIVE (NEGATIVE); METHADONE,URINE NEGATIVE (NEGATIVE); METHAMPHETAMINES,URINE NEGATIVE (NEGATIVE); OPIATES,URINE NEGATIVE (NEGATIVE); OXYCODONE,URINE NEGATIVE (NEGATIVE); PHENCYCLIDINE,URINE NEGATIVE (NEGATIVE); TCA,URINE NEGATIVE (NEGATIVE)
[2021-08-12] MEDS ORDERED: Potassium Chloride 20 MEQ in Premix Bag 1 BAG IV ONE (06:13)
[2021-08-12] MEDS ORDERED: Magnesium Sulfate/Water 2 GM in Premix Bag 1 BAG IV ONE (06:14)
[2021-08-12] MEDS ORDERED: Lidocaine 1% 30 ML SDV INJECT ONE (06:21)
[2021-08-12] MEDS ORDERED: LORazepam 2 MG/ML SDV IVPUSH PRN (08:23)
[2021-08-12] MEDS ORDERED: Ondansetron 4 MG/2 ML SDV IVPUSH PRN (08:25)
[2021-08-12] MEDS ORDERED: Docusate Sodium 100 MG Cap PO PRN (08:25)
[2021-08-12] MEDS ORDERED: oxyCODONE 5 MG Tab PO PRN (08:25)
[2021-08-12] MEDS ORDERED: Acetaminophen 325 MG Tab PO PRN (08:25)
[2021-08-12] MEDS ORDERED: Potassium Chloride 10 MEQ Tab.ER PO ONE (08:30)
[2021-08-12] MEDS: Thiamine 100 MG Tab PO SCH (10:13)
[2021-08-12] MEDS: Multivitamins with Iron/Calcium/Folic Acid/Minerals Tab PO SCH (10:13)
[2021-08-12] MEDS: Folic Acid 1 MG Tab PO SCH (10:13)
[2021-08-12] MEDS: LORazepam 0.5 MG Tab PO PRN ×2 (10:44→19:54)
[2021-08-12] MEDS: NS + KCl 20mEq/L 1,000 ML IV SCH ×2 (15:28→23:31)
[2021-08-12] MEDS: Heparin Sodium 5,000 Units/ML Vial SUBCUT SCH ×2 (15:32→23:37)
[2021-08-13] MEDS ORDERED: Temazepam 15 MG Cap PO PRN (02:07)
[2021-08-13] MEDS: LORazepam 0.5 MG Tab PO PRN ×2 (04:13→11:35)
[2021-08-13] MEDS: Heparin Sodium 5,000 Units/ML Vial SUBCUT SCH (05:28)
[2021-08-13 06:04] LABS: ANION GAP 15.9 mEq/L (7-13); CHLORIDE,CL 102 mmol/L (98-107); ESTIMATED GFR > 60; SODIUM,NA 135 mmol/L (136-145)
[2021-08-13 08:03] VITALS: BP 110/79; PULSE 88
[2021-08-13] MEDS: Multivitamins with Iron/Calcium/Folic Acid/Minerals Tab PO SCH (08:38)
[2021-08-13] MEDS: Folic Acid 1 MG Tab PO SCH (08:38)
[2021-08-13] MEDS: Thiamine 100 MG Tab PO SCH (08:38)
[2021-08-13] MEDS ORDERED: Phosphorus #1 250 MG Tab PO ONE (10:30)
[2021-08-13] MEDS ORDERED: FLU VAC QS 21-22(6MS UP)CEL/PF 60 MCG/0.5 ML SYRINGE IM ONE (11:00)
== END 2021-08-13 11:51 | disposition other institution (70) | DRG 897 ==
LOC: DL.ED 04:31 → DL.MS 08:16
PROVIDERS: ADMIT Internal Medicine; ATTEND Internal Medicine
DX: F10.230 Alcohol dependence with withdrawal, uncomplicated (principal); E87.6 Hypokalemia; E83.42 Hypomagnesemia; R79.89 Other specified abnormal findings of blood chemistry; F41.9 Anxiety disorder, unspecified; G89.29 Other chronic pain; M54.9 Dorsalgia, unspecified; F32.A Depression, unspecified; F43.10 Post-traumatic stress disorder, unspecified; D64.9 Anemia, unspecified; Z86.19 Personal history of other infectious and parasitic diseases; Z88.8 Allergy status to other drugs, medicaments and biological substances; Z79.899 Other long term (current) drug therapy; Z87.440 Personal history of urinary (tract) infections; Z87.891 Personal history of nicotine dependence; Z20.822 Contact with and (suspected) exposure to COVID-19; Z88.2 Allergy status to sulfonamides; Z88.1 Allergy status to other antibiotic agents; I25.2 Old myocardial infarction
CPT/HCPCS: 0240U; 36415; 80048; 80053; 80076; 80305; 80307; 81001; 81025; 82150; 83605; 83690; 83735; 84100; 84484; 85025; 85027; 86140; 90471; 90674; 93005; 93010; 96365; 96375; 96376; 99285; 99222; 99238; A9270-GY; G0008; J1644; J2060; J3411; J3475; J3480; J3490; J7030; J7120

== ENCOUNTER 2023-12-02 17:24 | Emergency (ER) | payer SELFPAY ==
[2023-12-02 17:45] LABS: BASOPHILS PERCENT AUTO 0.3 % (0.0-1.0); HEMATOCRIT 36.7 % (37.0-47.0); HEMOGLOBIN 12.4 g/dL (12.0-16.0); LYMPHOCYTES PERCENT AUTO 26.8 % (20.5-50.1); MEAN CORPUSCULAR HGB CONC 33.8 g/dL (33.0-35.0); NEUTROPHILS PERCENT AUTO 63.9 % (42.2-75.2); PLATELET COUNT,PLT 294 10^3/uL (150-450); RED BLOOD CELL COUNT 4.59 10^6/uL (4.2-5.4); WHITE BLOOD CELL COUNT,WBC 7.6 10^3/uL (5.0-10.0)
[2023-12-02 17:49] VITALS: BP 115/78; PULSE 74
[2023-12-02 18:11] LABS: A/G RATIO 0.9; ALANINE AMINOTRANSFERASE,ALT 33 U/L (14-59); ALBUMIN 3.7 g/dL (3.4-5.0); ALKALINE PHOSPHATASE 105 U/L (46-116); ANION GAP 15.8 mEq/L (7-13); ASPARTATE AMNIOTRANSFERASE,AST 19 U/L (15-37); BILIRUBIN TOTAL 0.5 mg/dL (0.2-1.0); BLOOD UREA NITROGEN,BUN 17 mg/dL (7-18); BUN/CREATININE RATIO 18.7 (No establ ref range); C-REACTIVE PROTEIN 0.56 ng/dL (<=0.50); CARBON DIOXIDE,CO2 22 mmol/L (21-32); CHLORIDE,CL 104 mmol/L (98-107); CREATININE 0.91 mg/dL (0.55-1.02); EST CRCL DRUG DOSING (CG) 65.64 mL/min; GLUCOSE RANDOM 110 mg/dL (70-99); MAGNESIUM 1.7 mg/dL (1.8-2.4); POTASSIUM,K 3.8 mmol/L (3.5-5.1); PROTEIN TOTAL,TP 7.8 g/dL (6.4-8.2); SODIUM,NA 138 mmol/L (136-145)
[2023-12-02 18:12] LABS: LACTIC ACID 0.9 mmol/L (0.4-2.0)
[2023-12-02 18:16] LABS: ESTIMATED GFR 82 mL/min (>=60)
[2023-12-02] MEDS: Sodium Chloride 0.9% 10 ML Syringe FLUSH PRN (18:30)
[2023-12-02 18:32] LABS: INR 0.9 (0.9-1.2); PROTHROMBIN TIME 9.7 SEC (9.0-12.0); PTT,PARTIAL THROMBOPLSTIN TIME 24.5 SEC (22.0-34.0)
[2023-12-02] MEDS: Pantoprazole 40 MG Vial IVPUSH ONE (19:59)
== END 2023-12-02 20:11 | disposition home or self-care (01) ==
LOC: DL.ED 17:24
DX: R07.89 Other chest pain (principal); I25.2 Old myocardial infarction; Z79.899 Other long term (current) drug therapy; Z88.1 Allergy status to other antibiotic agents; Z88.2 Allergy status to sulfonamides
CPT/HCPCS: 36415; 71045; 80053; 83605; 83735; 84145; 84484; 85025; 85610; 85730; 86140; 93005; 96374; 99285; C9113; 93010; 99284; J3490

== ENCOUNTER 2024-05-25 19:46 | Emergency (ER) | payer MEDICAID ==
[2024-05-25 20:38] VITALS: BP 122/82; PULSE 79
[2024-05-25 21:06] LABS: APPEARANCE,URINE CLOUDY (CLEAR); BILIRUBIN,URINE NEGATIVE (NEGATIVE); COLOR,URINE DARK YELLOW (YELLOW); GLUCOSE,URINE NEGATIVE (NEGATIVE); KETONES,URINE TRACE (NEGATIVE); LEUKOCYTE ESTERASE,URINE NEGATIVE (NEGATIVE); NITRITE,URINE NEGATIVE (NEGATIVE); OCCULT BLOOD,URINE LARGE (NEGATIVE); PH,URINE 5.5 (5.0-9.0); PROTEIN,URINE 100 (NEGATIVE); UROBILINOGEN,URINE 0.2 mg/dL (0.2-1.0)
[2024-05-25 21:15] LABS: BACTERIA,URINE FEW /HPF (0-FEW/HPF); EPITHELIAL CELLS,URINE FEW /HPF (NOT SEEN); RBC,URINE 75-100 /HPF (0-5); WBC,URINE 0-5 /HPF (0-5/HPF)
== END 2024-05-25 22:38 | disposition home or self-care (01) ==
LOC: DL.ED 19:46
DX: O20.9 Hemorrhage in early pregnancy, unspecified (principal); Z88.1 Allergy status to other antibiotic agents; Z88.2 Allergy status to sulfonamides; Z88.8 Allergy status to other drugs, medicaments and biological substances; Z79.899 Other long term (current) drug therapy; Z3A.01 Less than 8 weeks gestation of pregnancy
CPT/HCPCS: 36415; 76817; 81001; 81025; 84702; 99283; 99284

== ENCOUNTER 2024-05-28 15:55 | Emergency (ER) | payer MEDICAID ==
[2024-05-28 17:00] LABS: BASOPHILS PERCENT AUTO 0.2 % (0.0-1.0); EOSINOPHILS PERCENT AUTO 0.4 % (1.0-3.0); HEMATOCRIT 34.7 % (37.0-47.0); HEMOGLOBIN 11.5 g/dL (12.0-16.0); LYMPHOCYTES PERCENT AUTO 16.4 % (20.5-50.1); MEAN CORPUSCULAR HEMOGLOBIN 27.6 pg (27.0-34.0); MEAN CORPUSCULAR HGB CONC 33.1 g/dL (33.0-35.0); MEAN CORPUSCULAR VOLUME 83.2 fL (80-100); MONOCYTES PERCENT AUTO 5.2 % (2-8); NEUTROPHILS PERCENT AUTO 77.8 % (42.2-75.2); PLATELET COUNT,PLT 311 10^3/uL (150-450); RED BLOOD CELL COUNT 4.17 10^6/uL (4.2-5.4); WHITE BLOOD CELL COUNT,WBC 12.3 10^3/uL (5.0-10.0)
[2024-05-28] MEDS: Ketorolac 30 MG/ML SDV IM ONE (18:15)
[2024-05-28 18:29] VITALS: BP 131/92; PULSE 90
== END 2024-05-28 18:25 | disposition home or self-care (01) ==
LOC: DL.ED 15:55
DX: O20.0 Threatened abortion (principal); I25.2 Old myocardial infarction; Z87.891 Personal history of nicotine dependence; Z88.2 Allergy status to sulfonamides; Z88.8 Allergy status to other drugs, medicaments and biological substances; Z79.899 Other long term (current) drug therapy; Z3A.00 Weeks of gestation of pregnancy not specified
CPT/HCPCS: 36415; 84702; 85025; 96372; 99284; J1885

== ENCOUNTER 2025-01-17 14:29 | Emergency (ER) | payer MEDICAID ==
[2025-01-17] MEDS ORDERED: LORazepam 2 MG/ML SDV IVPUSH ONE (14:49)
[2025-01-17 15:06] LABS: BASOPHILS PERCENT AUTO 0.2 % (0.0-1.0); EOSINOPHILS PERCENT AUTO 0.0 % (1.0-3.0); LYMPHOCYTES PERCENT AUTO 13.9 % (20.5-50.1); MONOCYTES PERCENT AUTO 5.9 % (2-8); NEUTROPHILS PERCENT AUTO 80.0 % (42.2-75.2); PLATELET COUNT,PLT 291 10^3/uL (150-450); RED BLOOD CELL COUNT 4.64 10^6/uL (4.2-5.4); WHITE BLOOD CELL COUNT,WBC 8.8 10^3/uL (5.0-10.0)
[2025-01-17 15:28] LABS: A/G RATIO 1.0; ALANINE AMINOTRANSFERASE,ALT 45.0 U/L (14-59); ASPARTATE AMNIOTRANSFERASE,AST 33.0 U/L (15-37); BILIRUBIN TOTAL 1.6 mg/dL (0.2-1.0); BLOOD UREA NITROGEN,BUN 11.0 mg/dL (7-18); CARBON DIOXIDE,CO2 25.0 mmol/L (21-32); CHLORIDE,CL 100.0 mmol/L (98-107); CREATININE 0.54 mg/dL (0.55-1.02); EST CRCL DRUG DOSING (CG) 109.53 mL/min; GLUCOSE RANDOM 105.0 mg/dL (70-99); POTASSIUM,K 3.9 mmol/L (3.5-5.1); PROTEIN TOTAL,TP 8.1 g/dL (6.4-8.2); SODIUM,NA 138.0 mmol/L (136-145)
[2025-01-17 15:30] LABS: ESTIMATED GFR 119.0 mL/min (>=60)
[2025-01-17] MEDS: Magnesium Sulfate 2 GM/50 mL 2 GM in Premix Bag 1 BAG IV ONE (16:15)
[2025-01-17] MEDS: Take Home: Ondansetron 4 MG Tab.DIS, 5 Tab Pack PO ONE (18:36)
[2025-01-17] MEDS: Take Home: hydrOXYzine HCl 25 MG Tab, 4 Tab Pack PO ONE (18:36)
[2025-01-17 19:06] VITALS: BP 105/61; PULSE 74
== END 2025-01-17 18:41 | disposition home or self-care (01) ==
LOC: DL.ED 14:29
DX: F10.120 Alcohol abuse with intoxication, uncomplicated (principal); E83.42 Hypomagnesemia; I25.2 Old myocardial infarction; Z88.2 Allergy status to sulfonamides; Z88.1 Allergy status to other antibiotic agents; Z88.8 Allergy status to other drugs, medicaments and biological substances; Z79.899 Other long term (current) drug therapy; Y90.9 Presence of alcohol in blood, level not specified
CPT/HCPCS: 36415; 80053; 80307; 83735; 85025; 93005; 93010; 96365; 96366; 99284; A9270; J3475; Q0162

== ENCOUNTER 2025-01-27 02:18 | Emergency (ER) | payer OTHER, MEDICAID ==
[2025-01-27 02:01] LABS: BASOPHILS PERCENT AUTO 0.5 % (0.0-1.0); EOSINOPHILS PERCENT AUTO 0.9 % (1.0-3.0); LYMPHOCYTES PERCENT AUTO 34.3 % (20.5-50.1); MONOCYTES PERCENT AUTO 9.9 % (2-8); NEUTROPHILS PERCENT AUTO 54.4 % (42.2-75.2); PLATELET COUNT,PLT 316 10^3/uL (150-450); RED BLOOD CELL COUNT 4.31 10^6/uL (4.2-5.4); WHITE BLOOD CELL COUNT,WBC 6.6 10^3/uL (5.0-10.0)
[2025-01-27 02:05] LABS: INR 0.9 (0.9-1.2); PTT,PARTIAL THROMBOPLSTIN TIME 21.1 SEC (22.0-34.0)
[2025-01-27 02:07] LABS: A/G RATIO 0.8; ALANINE AMINOTRANSFERASE,ALT 68 U/L (14-59); ASPARTATE AMNIOTRANSFERASE,AST 51 U/L (15-37); BILIRUBIN TOTAL 0.3 mg/dL (0.2-1.0); BLOOD UREA NITROGEN,BUN 11 mg/dL (7-18); CARBON DIOXIDE,CO2 28 mmol/L (21-32); CHLORIDE,CL 108 mmol/L (98-107); CREATININE 0.60 mg/dL (0.55-1.02); GLUCOSE RANDOM 111 mg/dL (70-99); POTASSIUM,K 3.2 mmol/L (3.5-5.1); PROTEIN TOTAL,TP 7.7 g/dL (6.4-8.2); SODIUM,NA 148 mmol/L (136-145)
[2025-01-27 02:08] LABS: ESTIMATED GFR 116 mL/min (>=60); HCG QUALITATIVE,SERUM NEGATIVE (NEGATIVE)
[2025-01-27 02:09] LABS: LACTIC ACID 1.3 mmol/L (0.4-2.0)
[2025-01-27] MEDS: Ketorolac 30 MG/ML SDV IVPUSH ONE (06:05)
[2025-01-27] MEDS: Take Home: Acetaminophen/HYDROcodone 325-5 MG, 5 Tab Pack PO ONE (07:47)
[2025-01-27 08:36] VITALS: BP 102/71; PULSE 82
== END 2025-01-27 08:00 | disposition home or self-care (01) ==
LOC: EDBD → MERGE 02:18 → DL.ED 02:18
DX: S16.1XXA Strain of muscle, fascia and tendon at neck level, initial encounter (principal); E86.0 Dehydration; V49.49XA Driver injured in collision with other motor vehicles in traffic accident, initial encounter
CPT/HCPCS: 36415; 70450; 71045; 71260; 72125; 74177; 80053; 82947; 83605; 83690; 83735; 84484; 84703; 85025; 85610; 85730; 93010; 96361; 96374; 99283; 99285; A9270; J1885; J7030

== ENCOUNTER 2025-01-27 19:27 | Emergency (ER) | payer MEDICAID ==
[2025-01-27 20:02] LABS: BASOPHILS PERCENT AUTO 0.4 % (0.0-1.0); EOSINOPHILS PERCENT AUTO 0.4 % (1.0-3.0); LYMPHOCYTES PERCENT AUTO 17.7 % (20.5-50.1); MONOCYTES PERCENT AUTO 8.4 % (2-8); NEUTROPHILS PERCENT AUTO 73.1 % (42.2-75.2); PLATELET COUNT,PLT 306 10^3/uL (150-450); RED BLOOD CELL COUNT 4.36 10^6/uL (4.2-5.4); WHITE BLOOD CELL COUNT,WBC 8.2 10^3/uL (5.0-10.0)
[2025-01-27 20:36] LABS: BLOOD UREA NITROGEN,BUN 6 mg/dL (7-18); CARBON DIOXIDE,CO2 28 mmol/L (21-32); CHLORIDE,CL 101 mmol/L (98-107); CREATININE 0.50 mg/dL (0.55-1.02); ESTIMATED GFR 122 mL/min (>=60); GLUCOSE RANDOM 103 mg/dL (70-99); POTASSIUM,K 2.6 mmol/L (3.5-5.1); SODIUM,NA 142 mmol/L (136-145)
[2025-01-27 20:37] LABS: A/G RATIO 0.90; ALANINE AMINOTRANSFERASE,ALT 66 U/L (14-59); ASPARTATE AMNIOTRANSFERASE,AST 44 U/L (15-37); BILIRUBIN TOTAL 0.7 mg/dL (0.2-1.0); CREATINE KINASE,CK 212 U/L (16-191); PROTEIN TOTAL,TP 7.8 g/dL (6.4-8.2)
[2025-01-27 20:39] LABS: ETHANOL BLOOD MEDICAL 151 mg/dL (0); TSH ULTRASENSITIVE 0.82 uIU/mL (0.36-3.74)
[2025-01-27 20:41] LABS: LACTIC ACID 3.1 mmol/L (0.4-2.0)
[2025-01-27 20:58] LABS: AMPHETAMINES,URINE NEGATIVE (NEGATIVE); BARBITURATES,URINE NEGATIVE (NEGATIVE); MDMA (ECSTASY), URINE NEGATIVE (NEGATIVE); METHAMPHETAMINES,URINE NEGATIVE (NEGATIVE); OPIATES,URINE POSITIVE (NEGATIVE); OXYCODONE,URINE NEGATIVE (NEGATIVE); PHENCYCLIDINE,URINE NEGATIVE (NEGATIVE); TCA,URINE NEGATIVE (NEGATIVE)
[2025-01-27 21:05] LABS: APPEARANCE,URINE CLEAR (CLEAR)
[2025-01-27 21:07] LABS: GLUCOSE,URINE NEGATIVE (NEGATIVE); OCCULT BLOOD,URINE TRACE-INTACT (NEGATIVE)
[2025-01-27] MEDS: Potassium Chloride 20 MEQ in Premix Bag 1 BAG IV ONE (21:12)
[2025-01-27] MEDS: Magnesium Sulfate 2 GM/50 mL 2 GM in Premix Bag 1 BAG IV ONE (21:12)
[2025-01-27] MEDS: Potassium Chloride 10 MEQ Tab.ER PO ONE (21:13)
[2025-01-27 21:15] LABS: EPITHELIAL CELLS,URINE FEW /HPF (NOT SEEN)
[2025-01-28] MEDS: MVI, Adult with Vitamin K 10 ML, Folic Acid 1 MG, Thiamine 100 MG in Lactated Ringers 1... IV ONE (01:25)
[2025-01-28 01:35] LABS: BLOOD UREA NITROGEN,BUN 5 mg/dL (7-18); CARBON DIOXIDE,CO2 24 mmol/L (21-32); CHLORIDE,CL 105 mmol/L (98-107); CREATININE 0.41 mg/dL (0.55-1.02); ESTIMATED GFR 127 mL/min (>=60); GLUCOSE RANDOM 94 mg/dL (70-99); POTASSIUM,K 3.2 mmol/L (3.5-5.1); SODIUM,NA 141 mmol/L (136-145)
[2025-01-28] MEDS: Potassium Chloride 10 MEQ Tab.ER PO ONE (03:36)
[2025-01-28 06:16] VITALS: BP 114/76; PULSE 78
== END 2025-01-28 06:05 | disposition home or self-care (01) ==
LOC: DL.ED 19:27
DX: F10.10 Alcohol abuse, uncomplicated (principal); E87.6 Hypokalemia; E83.42 Hypomagnesemia; Z88.2 Allergy status to sulfonamides; Z88.1 Allergy status to other antibiotic agents; Z88.8 Allergy status to other drugs, medicaments and biological substances; Z79.899 Other long term (current) drug therapy
CPT/HCPCS: 36415; 80048; 80053; 80305-QW; 80307; 81001; 81025; 82550; 83605; 83690; 83735; 84443; 84484; 85025; 93005; 93010; 96365; 96366; 96367; 96368; 99284; 99285-25; A9270-GY; J1808; J3411; J3475; J3480; J3490; J7030; J7120

== ENCOUNTER 2025-02-06 13:12 | Emergency (ER) | payer MEDICAID ==
[2025-02-06 13:47] VITALS: BP 144/78; PULSE 78
== END 2025-02-06 13:45 | disposition home or self-care (01) ==
LOC: DL.ED 13:12
DX: F10.120 Alcohol abuse with intoxication, uncomplicated (principal); I25.2 Old myocardial infarction; Z79.899 Other long term (current) drug therapy; Z88.2 Allergy status to sulfonamides; Z88.8 Allergy status to other drugs, medicaments and biological substances
CPT/HCPCS: 99283

== ENCOUNTER 2025-02-16 12:46 | Inpatient (IN) | payer MEDICAID ==
[2025-02-16] MEDS: Ondansetron 4 MG/2 ML SDV IVPUSH ONE (13:40)
[2025-02-16] MEDS: Midazolam 1 MG/ML 2 ML SDV IVPUSH ONE ×2 (13:41→13:44)
[2025-02-16 13:44] LABS: BASOPHILS PERCENT AUTO 0.4 % (0.0-1.0); EOSINOPHILS PERCENT AUTO 1.1 % (1.0-3.0); LYMPHOCYTES PERCENT AUTO 23.1 % (20.5-50.1); MONOCYTES PERCENT AUTO 8.8 % (2-8); NEUTROPHILS PERCENT AUTO 66.6 % (42.2-75.2); PLATELET COUNT,PLT 171 10^3/uL (150-450); RED BLOOD CELL COUNT 4.49 10^6/uL (4.2-5.4); WHITE BLOOD CELL COUNT,WBC 4.5 10^3/uL (5.0-10.0)
[2025-02-16] MEDS: MVI, Adult with Vitamin K 10 ML, Folic Acid 1 MG, Thiamine 100 MG in Lactated Ringers 1... IV ONE (13:58)
[2025-02-16 14:05] LABS: ALANINE AMINOTRANSFERASE,ALT 98 U/L (14-59); ASPARTATE AMNIOTRANSFERASE,AST 162 U/L (15-37); BILIRUBIN TOTAL 0.8 mg/dL (0.2-1.0); BLOOD UREA NITROGEN,BUN 4 mg/dL (7-18); CARBON DIOXIDE,CO2 26 mmol/L (21-32); CHLORIDE,CL 99 mmol/L (98-107); CREATININE 0.63 mg/dL (0.55-1.02); ETHANOL BLOOD MEDICAL 264 mg/dL (0); GLUCOSE RANDOM 142 mg/dL (70-99); POTASSIUM,K 2.6 mmol/L (3.5-5.1); PROTEIN TOTAL,TP 8.8 g/dL (6.4-8.2); SODIUM,NA 139 mmol/L (136-145)
[2025-02-16 14:08] LABS: A/G RATIO 0.60; ESTIMATED GFR 115 mL/min (>=60)
[2025-02-16] MEDS: Midazolam 1 MG/ML 2 ML SDV ONE (14:30)
[2025-02-16] MEDS: Potassium Chloride 20 MEQ in Premix Bag 1 BAG IV ONE (15:30)
[2025-02-16] MEDS ORDERED: Sodium Chloride 0.9% 10 ML Syringe FLUSH PRN (16:14)
[2025-02-16 17:04] LABS: IRON,FE 122.0 ug/dL (50-170); PERCENT FE SATURATION 32.6 % (20.0-50.0)
[2025-02-16] MEDS: GI Cocktail Oral Solution 30 ML PO ONE (17:14)
[2025-02-16] MEDS: Magnesium Sulfate 2 GM/50 mL 2 GM in Premix Bag 1 BAG IV ONE (17:14)
[2025-02-16] MEDS: cloNIDine 0.1 MG/Day Transdermal Patch TRDERM SCH (17:27)
[2025-02-16 17:30] LABS: FOLIC ACID 14.4 ng/mL (8.6-58.9); PHOSPHORUS 3.6 mg/dL (2.6-4.7)
[2025-02-16] MEDS: Sodium Chloride 0.9% 10 ML Syringe FLUSH SCH (20:39)
[2025-02-16] MEDS: Ondansetron 4 MG/2 ML SDV IVPUSH PRN (23:09)
[2025-02-16] MEDS: Heparin Sodium 5,000 Units/ML Vial SUBCUT SCH (23:13)
[2025-02-17] MEDS: Sucralfate Suspension 1 GM/10 ML Cup PO SCH (05:58)
[2025-02-17 06:18] LABS: BASOPHILS PERCENT AUTO 0.2 % (0.0-1.0); EOSINOPHILS PERCENT AUTO 0.2 % (1.0-3.0); LYMPHOCYTES PERCENT AUTO 11.8 % (20.5-50.1); MONOCYTES PERCENT AUTO 5.6 % (2-8); NEUTROPHILS PERCENT AUTO 82.2 % (42.2-75.2); PLATELET COUNT,PLT 128 10^3/uL (150-450); RED BLOOD CELL COUNT 3.84 10^6/uL (4.2-5.4); WHITE BLOOD CELL COUNT,WBC 5.7 10^3/uL (5.0-10.0)
[2025-02-17 06:41] LABS: ALANINE AMINOTRANSFERASE,ALT 79.0 U/L (14-59); ASPARTATE AMNIOTRANSFERASE,AST 101.0 U/L (15-37); BILIRUBIN DIRECT 0.3 mg/dL (0.0-0.2); BILIRUBIN INDIRECT 0.8; BILIRUBIN TOTAL 1.1 mg/dL (0.2-1.0); BLOOD UREA NITROGEN,BUN 5.0 mg/dL (7-18); CARBON DIOXIDE,CO2 30.0 mmol/L (21-32); CHLORIDE,CL 97.0 mmol/L (98-107); CREATININE 0.49 mg/dL (0.55-1.02); EST CRCL DRUG DOSING (CG) 131.79 mL/min; GLUCOSE RANDOM 135.0 mg/dL (70-99); POTASSIUM,K 2.9 mmol/L (3.5-5.1); PROTEIN TOTAL,TP 7.6 g/dL (6.4-8.2)
[2025-02-17 06:46] LABS: INR 1.0 (0.9-1.2); SODIUM,NA 135.0 mmol/L (136-145)
[2025-02-17 06:50] LABS: A/G RATIO 0.58; ESTIMATED GFR 122.0 mL/min (>=60)
[2025-02-17] MEDS: Potassium Chloride 20 MEQ in Premix Bag 1 BAG IV ONE (10:08)
[2025-02-17] MEDS: Magnesium Sulfate 2 GM/50 mL 2 GM in Premix Bag 1 BAG IV ONE (10:09)
[2025-02-17] MEDS: Ampicillin/Sulbactam Na 3 GM in Sodium Chloride 0.9% 100 ML IV SCH ×2 (15:38→20:57)
[2025-02-18 06:30] LABS: BLOOD UREA NITROGEN,BUN 4.0 mg/dL (7-18); CARBON DIOXIDE,CO2 28.0 mmol/L (21-32); CHLORIDE,CL 99.0 mmol/L (98-107); CREATININE 0.49 mg/dL (0.55-1.02); EST CRCL DRUG DOSING (CG) 120.71 mL/min; GLUCOSE RANDOM 122.0 mg/dL (70-99); POTASSIUM,K 3.0 mmol/L (3.5-5.1); SODIUM,NA 135.0 mmol/L (136-145)
[2025-02-18 06:33] LABS: ESTIMATED GFR 122.0 mL/min (>=60)
[2025-02-18 06:42] LABS: BASOPHILS PERCENT AUTO 0.4 % (0.0-1.0); EOSINOPHILS PERCENT AUTO 2.6 % (1.0-3.0); LYMPHOCYTES PERCENT AUTO 19.2 % (20.5-50.1); MONOCYTES PERCENT AUTO 6.7 % (2-8); NEUTROPHILS PERCENT AUTO 71.1 % (42.2-75.2); PLATELET COUNT,PLT 127 10^3/uL (150-450); RED BLOOD CELL COUNT 4.16 10^6/uL (4.2-5.4); WHITE BLOOD CELL COUNT,WBC 4.6 10^3/uL (5.0-10.0)
[2025-02-18] MEDS: Potassium Chloride 10 MEQ Tab.ER PO ONE ×2 (11:31→17:58)
[2025-02-18] MEDS: Potassium Chloride 20 MEQ in Premix Bag 1 BAG IV ONE (18:11)
[2025-02-19 06:33] LABS: BASOPHILS PERCENT AUTO 0.3 % (0.0-1.0); EOSINOPHILS PERCENT AUTO 4.5 % (1.0-3.0); LYMPHOCYTES PERCENT AUTO 34.4 % (20.5-50.1); MONOCYTES PERCENT AUTO 8.1 % (2-8); NEUTROPHILS PERCENT AUTO 52.7 % (42.2-75.2); PLATELET COUNT,PLT 146 10^3/uL (150-450); RED BLOOD CELL COUNT 4.05 10^6/uL (4.2-5.4); WHITE BLOOD CELL COUNT,WBC 3.3 10^3/uL (5.0-10.0)
[2025-02-19 07:11] LABS: ALANINE AMINOTRANSFERASE,ALT 75.0 U/L (14-59); ASPARTATE AMNIOTRANSFERASE,AST 138.0 U/L (15-37); BILIRUBIN TOTAL 0.6 mg/dL (0.2-1.0); BLOOD UREA NITROGEN,BUN 2.0 mg/dL (7-18); CARBON DIOXIDE,CO2 24.0 mmol/L (21-32); CHLORIDE,CL 105.0 mmol/L (98-107); CREATININE 0.55 mg/dL (0.55-1.02); EST CRCL DRUG DOSING (CG) 107.54 mL/min; GLUCOSE RANDOM 124.0 mg/dL (70-99); POTASSIUM,K 3.4 mmol/L (3.5-5.1); PROTEIN TOTAL,TP 7.2 g/dL (6.4-8.2); SODIUM,NA 137.0 mmol/L (136-145)
[2025-02-19 07:13] LABS: A/G RATIO 0.53; ESTIMATED GFR 119.0 mL/min (>=60)
[2025-02-19] MEDS: Potassium Chloride 10 MEQ Tab.ER PO SCH (08:24)
[2025-02-19] MEDS: buPROPion 150 MG Tab.ER PO SCH (08:24)
[2025-02-19 15:54] VITALS: BP 109/56; PULSE 94
== END 2025-02-19 20:00 | disposition left against medical advice (07) | DRG 640 ==
LOC: DL.ED 12:46 → UNDOADMIN 15:40 → DL.MS 15:40
PROVIDERS: ADMIT Internal Medicine; ATTEND Student in an Organized Health Care Education/Training Program
DX: F10.120 Alcohol abuse with intoxication, uncomplicated (principal); E87.6 Hypokalemia; J69.0 Pneumonitis due to inhalation of food and vomit; F10.231 Alcohol dependence with withdrawal delirium; D61.818 Other pancytopenia; E86.0 Dehydration; Y90.8 Blood alcohol level of 240 mg/100 ml or more; G89.29 Other chronic pain; M54.9 Dorsalgia, unspecified; F41.9 Anxiety disorder, unspecified; F32.A Depression, unspecified; F43.10 Post-traumatic stress disorder, unspecified; Z98.890 Other specified postprocedural states; Z88.2 Allergy status to sulfonamides; Z88.1 Allergy status to other antibiotic agents; Z79.899 Other long term (current) drug therapy; I25.2 Old myocardial infarction; E83.51 Hypocalcemia; E83.42 Hypomagnesemia; K29.20 Alcoholic gastritis without bleeding
CPT/HCPCS: 36415; 71045; 80053; 80307; 82272; 83735; 85025; 96365; 96367; 96375; 99284; 99285; A9270; J1808; J2250 ×2; J2405; J3360; J3411; J3480; J7120; 80048; 80076; 82607; 82746; 82947; 83540; 83550; 83690; 83880; 84100; 84132; 85610; 99223; 99233; 99238; J0295; J0612; J1644; J2270; J2470; J3475; J3490; S5010

== ENCOUNTER 2025-03-14 07:24 | Emergency (ER) | payer MEDICAID ==
[2025-03-14 07:47] LABS: BASOPHILS PERCENT AUTO 0.2 % (0.0-1.0); EOSINOPHILS PERCENT AUTO 0.0 % (1.0-3.0); LYMPHOCYTES PERCENT AUTO 4.0 % (20.5-50.1); MONOCYTES PERCENT AUTO 3.7 % (2-8); NEUTROPHILS PERCENT AUTO 92.1 % (42.2-75.2); PLATELET COUNT,PLT 179 10^3/uL (150-450); RED BLOOD CELL COUNT 4.19 10^6/uL (4.2-5.4); WHITE BLOOD CELL COUNT,WBC 10.8 10^3/uL (5.0-10.0)
[2025-03-14 08:03] LABS: INR 1.0 (0.9-1.2)
[2025-03-14 08:09] LABS: A/G RATIO 0.7; ALANINE AMINOTRANSFERASE,ALT 178 U/L (14-59); ASPARTATE AMNIOTRANSFERASE,AST 160 U/L (15-37); BILIRUBIN DIRECT 0.5 mg/dL (0.0-0.2); BILIRUBIN INDIRECT 1.1; BILIRUBIN TOTAL 1.6 mg/dL (0.2-1.0); BLOOD UREA NITROGEN,BUN 9 mg/dL (7-18); CARBON DIOXIDE,CO2 20 mmol/L (21-32); CHLORIDE,CL 97 mmol/L (98-107); CREATININE 0.58 mg/dL (0.55-1.02); EST CRCL DRUG DOSING (CG) 101.98 mL/min; GLUCOSE RANDOM 136 mg/dL (70-99); POTASSIUM,K 3.4 mmol/L (3.5-5.1); PROTEIN TOTAL,TP 9.1 g/dL (6.4-8.2); SODIUM,NA 136 mmol/L (136-145)
[2025-03-14 08:12] LABS: ESTIMATED GFR 117 mL/min (>=60); ETHANOL BLOOD MEDICAL < 3 mg/dL (0)
[2025-03-14 10:03] VITALS: BP 133/97; PULSE 86
== END 2025-03-14 11:00 | disposition home or self-care (01) ==
LOC: DL.ED 07:24
DX: F10.230 Alcohol dependence with withdrawal, uncomplicated (principal); Z88.2 Allergy status to sulfonamides; Z88.8 Allergy status to other drugs, medicaments and biological substances; Z79.899 Other long term (current) drug therapy
CPT/HCPCS: 36415; 80048; 80076; 80307; 82150; 83690; 85025; 85610; 96361; 96374; 96376; 99283; 99285; J3360; J7030